=== PATIENT | male | born 1960 | race Caucasian/White ===

== ENCOUNTER 2016-12-12 02:25 | Emergency (ER) | payer MEDICARE ==
[2016-12-12 02:40] VITALS: TEMP 96.5
--- NOTE | 2016-12-12 03:05 | ED.PDOC ---
History of Present Illness - General Chief Complaint: Blood Pressure Problem Stated Complaint: low blood pressure Time Seen by Provider: 12/12/16 03:04 Source: patient, family Exam Limitations: no limitations - History of Present Illness Initial Comments: Mr. Tank Espitia 56 y/o male with history of seizure dyslipedemia and chronic disc disease stated his symptoms started at about 8 pm tonight after coming out of his garage felt dizzy for few minutes then went away ate supper and he and his watched tv and admitted drinking a glass of wine and 1 bottle of beer. After watching tv got up from his sofa and almost passed out took his blood pressure and bp-70/50 so called up em[facility] and took his bp-65/40.He was then brought here to er. Timing/Duration: 1-3 hours Improving Factors: nothing Worsening Factors: other - standing Associated Symptoms: other - dizziness Allergies/Adverse Reactions: Allergies Tramadol Allergy (Verified 12/12/16 02:41) Zolpidem [From Ambien] Allergy (Verified 12/12/16 02:41) Acetaminophen [From Fioricet] Adverse Reaction (Verified 02/18/16 17:58) Other Butalbital [From Fioricet] Adverse Reaction (Verified 02/18/16 17:58) Other Caffeine [From Fioricet] Adverse Reaction (Verified 02/18/16 17:58) Other Home Medications: Ambulatory Orders Alprazolam [Xanax] 1 mg PO TID 08/23/14 Esomeprazole Magnesium [Nexium] 40 mg PO DAILY 08/23/14 Gemfibrozil 600 mg PO BID 08/23/14 Lovastatin 20 mg PO DAILY 08/23/14 Trazodone HCl 150 mg PO BEDTIME 08/23/14 Levetiracetam [Keppra] 500 mg PO BID 08/30/15 Lisinopril & Hydrochlorothiazi [Lisinopril/Hctz 20-25 mg] 1 tab PO DAILY HYDROcodone 5MG/APAP 325MG [[facility] 5/325] 7.5 mg PO Q6HR PRN 02/18/16 fentaNYL PATCH 25 MCG/HR [Duragesic Patch 25 MCG/HR] 25 mcg TOP 12/12/16 tiZANidine [Zanaflex] 4 mg PO 12/12/16 Review of Systems - Review of Systems Constitutional: States: no symptoms reported EENTM: States: no symptoms reported Respiratory: States: no symptoms reported Cardiology: States: see HPI Gastrointestinal/Abdominal: States: no symptoms reported Genitourinary: States: no symptoms reported Musculoskeletal: States: back pain, neck pain Skin: States: no symptoms reported Neurological: States: no symptoms reported, paresthesia - fingers-residual post neck surgery Past Medical History (General) - Patient Medical History Hx Seizures: Yes Hx Stroke: No Hx Dementia: No Hx Asthma: No Hx of COPD: No Hx Cardiac Disorders: No Hx Congestive Heart Failure: No Hx Pacemaker: No Hx Hypertension: Yes Hx Thyroid Disease: No Hx Diabetes: No Hx Gastroesophageal Reflux: Yes Hx Renal Disease: No Hx Cancer: No Hx of HIV: No Hx Hepatitis C: No Hx MRSA: No Hx Other PMH: Yes - Heat stroke Surgical History: tonsillectomy Other Surgeries:: discectomy,c-spine x 2- 03/27,06/27 - Vaccination History Hx Tetanus, Diphtheria Vaccination: Yes Hx Influenza Vaccination: Yes Hx Pneumococcal Vaccination: No - Social History Hx Tobacco Use: No Hx Chewing Tobacco Use: No Hx Alcohol Use: Yes Hx Substance Use: No Hx Substance Use Treatment: No Hx Depression: No Hx Physical Abuse: No Hx Emotional Abuse: No Hx Suspected Abuse: No - Activities of Daily Living Patient Lives Alone: No - lives with family Grooming Ability: Independent Eating (Feeding) Ability: Independent Toileting Ability: Independent - Female History Patient : No Family Medical History - Family History Father Living Status: Hx Family Stroke: Yes Hx Family Cancer: Yes - pancreas-dad Hx Family;Other: Down syndrome Physical Exam - Physical Exam General Appearance: Alert, No apparent distress Eye Exam: bilateral normal Ears, Nose, Throat: hearing grossly normal, normal ENT inspection, normal pharynx Neck: non-tender, full range of motion, supple, other - surgical site clear intact Respiratory: chest non-tender, lungs clear, normal breath sounds, no respiratory distress Cardiovascular/Chest: normal peripheral pulses, regular rate, rhythm, no edema, no gallop, no JVD, no murmur Gastrointestinal/Abdominal: normal bowel sounds, non tender, soft, no organomegaly, no pulsatile mass Back Exam: normal inspection, no CVA tenderness, no vertebral tenderness Extremity: normal range of motion, non-tender, normal inspection Neurologic: no motor/sensory deficits, alert, oriented x 3 Skin Exam: normal color, warm/dry, cyanosis Lymphatic: no adenopathy Progress - Progress Progress: 12/12/16 06:23 12/12/16 04:30 EKG STAT 12/12/16 05:00 BLOOD CULTURE Stat 12/12/16 05:59 Cervical Spine [CT] Stat 12/12/16 06:13 Sodium Chloride 0.9% 1000ML [Ns 1000 ml] 1,000 ml IVS ONCE levoFLOXacin 500MG IV [Levaquin 500MG IV] 500 mg Premix Bag 1 bag IVPB ONCE Laboratory Results WBC 7.0 K/mm3 (4.8-10.8) 12/12/16 03:05 RBC 3.54 M/mm3 (4.70-6.10) L 12/12/16 03:05 Hgb 11.4 gm/dL (14.0-18.0) L 12/12/16 03:05 Hct 33.6 % (42.0-52.0) L 12/12/16 03:05 MCV 95.2 fl (80.0-94.0) H 12/12/16 03:05 MCH 32.2 pg (27.0-31.0) H 12/12/16 03:05 MCHC 33.8 g/dL (33.0-37.0) 12/12/16 03:05 RDW 13.4 % (11.5-14.5) 12/12/16 03:05 Plt Count 255 K/mm3 (130-400) 12/12/16 03:05 MPV 7.8 fl (7.40-10.4) 12/12/16 03:05 Absolute Neuts (auto) 3.60 K/uL (1.8-6.8) 12/12/16 03:05 Absolute Lymphs (auto) 2.50 K/uL (1.0-3.4) 12/12/16 03:05 Absolute Monos (auto) 0.70 K/uL (0.2-0.8) 12/12/16 03:05 Absolute Eos (auto) 0.20 K/uL (0.0-0.4) 12/12/16 03:05 Absolute Basos (auto) 0.00 K/uL (0.0-0.1) 12/12/16 03:05 Neutrophils % 51.2 % (42.0-78.0) 12/12/16 03:05 Lymphocytes % 35.9 % (20.0-50.0) 12/12/16 03:05 Monocytes % 9.7 % (2.0-9.0) H 12/12/16 03:05 Eosinophils % 2.6 % (1.0-5.0) 12/12/16 03:05 Basophils % 0.6 % (0.0-2.0) 12/12/16 03:05 ESR 13 mm/hr (0-20) 12/12/16 04:46 PT 11.7 SECONDS (9.4-12.5) 12/12/16 03:05 INR 1.040 12/12/16 03:05 PTT (SP) 31.1 SECONDS (25.1-36.5) 12/12/16 03:05 D-Dimer, Quantitative < 200 ng/mL (0-230) 12/12/16 03:05 Sodium 138 mmol/L (135-145) 12/12/16 03:05 Potassium 3.2 mmol/L (3.6-5.0) L 12/12/16 03:05 Chloride 105 mmol/L (101-111) 12/12/16 03:05 Carbon Dioxide 22 mmol/L (21-31) 12/12/16 03:05 Anion Gap 14.2 (12-18) 12/12/16 03:05 BUN 22 mg/dL (7-18) H 12/12/16 03:05 Creatinine 1.52 mg/dL (0.6-1.3) H 12/12/16 03:05 BUN/Creatinine Ratio 14.5 (10-20) 12/12/16 03:05 Random Glucose 152 mg/dL (70-105) H 12/12/16 03:05 Serum Osmolality 282.0 mOsm/L (275-295) 12/12/16 03:05 Lactic Acid 2.9 mmol/L (0.5-2.2) H* 12/12/16 04:14 Calcium 8.9 mg/dL (8.4-10.2) 12/12/16 03:05 Magnesium 2.1 mg/dL (1.8-2.5) 12/12/16 03:05 Total Bilirubin 0.5 mg/dL (0.2-1.0) 12/12/16 03:05 AST 34 IU/L (10-42) 12/12/16 03:05 ALT 34 IU/L (10-60) 12/12/16 03:05 Alkaline Phosphatase 35 IU/L (42-121) L 12/12/16 03:05 Creatine Kinase 217 IU/L (38-174) H* 12/12/16 03:05 CK-MB (CK-2) 6.3 ng/mL (0.0-4.4) H* 12/12/16 03:05 CK-MB (CK-2) % 2.90 % (0.0-3.5) 12/12/16 03:05 Troponin I < 0.02 ng/mL (0.01-0.05) 12/12/16 03:05 B-Natriuretic Peptide 25.5 pg/ml (0-100) 12/12/16 03:05 Serum Total Protein 6.8 gm/dL (6.4-8.2) 12/12/16 03:05 Albumin 4.1 g/dl (3.2-5.5) 12/12/16 03:05 Globulin 2.7 gm/dL (2.3-3.5) 12/12/16 03:05 Albumin/Globulin Ratio 1.5 (1.1-1.9) 12/12/16 03:05 TSH 5.40 uIU/mL (0.34-5.60) 12/12/16 03:41 Urine Color Yellow (Yellow) 12/12/16 03:25 Urine Appearance Clear (Clear) 12/12/16 03:25 Urine pH 6.5 (4.5-7.8) 12/12/16 03:25 Ur Specific [place] 1.010 (1.005-1.030) 12/12/16 03:25 Urine Protein Negative mg/dL 12/12/16 03:25 Urine Glucose (UA) Negative mg/dL (Negative) 12/12/16 03:25 Urine Ketones Negative mg/dL (NEGATIVE) 12/12/16 03:25 Urine Blood Small (Negative) H 12/12/16 03:25 Urine Nitrite Negative 12/12/16 03:25 Urine Bilirubin Negative (NEGATIVE) 12/12/16 03:25 Urine Urobilinogen 0.2 mg/dL (0.2-1.0) 12/12/16 03:25 Ur Leukocyte Esterase Negative (Negative) 12/12/16 03:25 Urine RBC 1-3 /hpf 12/12/16 03:25 Urine WBC 0 /hpf 12/12/16 03:25 Ur Epithelial Cells 0 /hpf 12/12/16 03:25 Urine Bacteria 0 12/12/16 03:25 Urine Opiates Screen Negative ng/mL (2000) 12/12/16 03:07 Urine Barbiturates Negative ng/mL (200) 12/12/16 03:07 Ur Phencyclidine Scrn Negative ng/mL (25) 12/12/16 03:07 U Amphetamin/Meth Scrn Negative ng/mL (1000) 12/12/16 03:07 U Benzodiazepines Scrn Positive ng/mL (200) H 12/12/16 03:07 U Cocaine Metab Screen Negative ng/mL (300) 12/12/16 03:07 U Cannabinoids Screen Negative ng/mL (50) 12/12/16 03:07 Ethyl Alcohol 143.50 mg/dL (0-79) H* 12/12/16 03:07 12/12/16 06:23 - EKG/XRAY/CT Comments: NSR-no acute changes XRAY: chest - no acute abnormalities noted CT: C-Spine :degenerative and post op changes - Additional EKG/XRAY/Consults Comments: D/W Dr. Abrams-spine surgeon transfer to [facility] Departure - Departure Clinical Impression: Lactic acid blood increased, Renal insufficiency, H/O cervical spine surgery Hypotension Qualifiers: Hypotension type: unspecified hypotension type Qualifier Code: (I95.9) Hypotension, unspecified Time of Disposition: 06:33 - D/W Dr. Abrams-spine surgeon for transfer to [facility] Disposition: Transfer to Hospital Condition: Fair Departure Forms: ED Discharge - Pt. Copy, Patient Portal Self Enrollment Referrals: Riley Ramirez MD [Primary Care Provider] - 1-2 Weeks Home Medications: Ambulatory Orders Alprazolam [Xanax] 1 mg PO TID 08/23/14 Esomeprazole Magnesium [Nexium] 40 mg PO DAILY 08/23/14 Gemfibrozil 600 mg PO BID 08/23/14 Lovastatin 20 mg PO DAILY 08/23/14 Trazodone HCl 150 mg PO BEDTIME 08/23/14 Levetiracetam [Keppra] 500 mg PO BID 08/30/15 Lisinopril & Hydrochlorothiazi [Lisinopril/Hctz 20-25 mg] 1 tab PO DAILY HYDROcodone 5MG/APAP 325MG [[facility] 5/325] 7.5 mg PO Q6HR PRN 02/18/16 fentaNYL PATCH 25 MCG/HR [Duragesic Patch 25 MCG/HR] 25 mcg TOP 12/12/16 tiZANidine [Zanaflex] 4 mg PO 12/12/16 Addendum entered and electronically signed by Dangelo Calero MD 12/12/16 09:03 : Departure - Departure Clinical Impression: Lactic acid blood increased, Renal insufficiency, H/O cervical spine surgery Hypotension Qualifiers: Hypotension type: unspecified hypotension type Qualifier Code: (I95.9) Hypotension, unspecified Disposition: Transfer to Hospital Condition: Fair Departure Forms: ED Discharge - Pt. Copy, Patient Portal Self Enrollment Referrals: Riley Ramirez MD [Primary Care Provider] - 1-2 Weeks Home Medications: Ambulatory Orders Alprazolam [Xanax] 1 mg PO TID 08/23/14 Esomeprazole Magnesium [Nexium] 40 mg PO DAILY 08/23/14 Gemfibrozil 600 mg PO BID 08/23/14 Lovastatin 20 mg PO DAILY 08/23/14 Trazodone HCl 150 mg PO BEDTIME 08/23/14 Levetiracetam [Keppra] 500 mg PO BID 08/30/15 Lisinopril & Hydrochlorothiazi [Lisinopril/Hctz 20-25 mg] 1 tab PO DAILY HYDROcodone 5MG/APAP 325MG [[facility] 5/325] 7.5 mg PO Q6HR PRN 02/18/16 fentaNYL PATCH 25 MCG/HR [Duragesic Patch 25 MCG/HR] 25 mcg TOP 12/12/16 tiZANidine [Zanaflex] 4 mg PO 12/12/16 ED Addendum - ED Addendum Addendum: the patient is being transferred to the emergency room due to lack of inpatient beds. Dr. Brunosn is the accepting physician. Blood pressures have been stable at 2 L of IV fluids. The patient has received a dose of Levaquin.
[2016-12-12] MEDS: SODIUM CHLORIDE 0.9% 1000ML 1,000 ML IVS ONE ×3 (03:12→06:25)
--- NOTE | 2016-12-12 03:51 | RAD ---
EXAM DESCRIPTION: XR CHEST 1 VIEW 12/12/2016 3:36 AM CLINICAL HISTORY: 56 y/o , M, cough COMPARISON: Portable AP view of the chest August 30, 2015 FINDINGS: The lungs are clear without focal consolidation or pleural effusion. The heart is normal in size. The mediastinal contours are normal in appearance. The osseous structures are age appropriate. There is surgical hardware in the lower cervical spine. The upper abdomen is grossly normal. IMPRESSION: No acute cardiopulmonary disease (stable appearing chest). Electronically signed by: Carmen Torres MD 12/12/2016 03:48
[2016-12-12] MEDS ORDERED: levoFLOXacin 500MG IV 100 ML IVPB ONE (06:23)
[2016-12-12] MEDS: levoFLOXacin 500MG IV 500 MG in PREMIX BAG 1 BAG IVPB ONE (06:24)
[2016-12-12] MEDS: fentaNYL CITRATE INJ 50 MCG/ML AMP IV ONE (06:37)
--- NOTE | 2016-12-12 06:42 | CT ---
EXAM DESCRIPTION: CT CERVICAL SPINE WITHOUT IV CONTRAST 12/12/2016 6:27 AM CLINICAL HISTORY: 56 y/o , M, neck pain COMPARISON: MRI of the cervical spine without contrast February 10, 2015 TECHNIQUE: Volumetric CT acquisition was performed through the cervical spine. Images in the axial, coronal, and sagittal planes were presented for interpretation. FINDINGS: There are 7 cervical type vertebral bodies in normal anatomic alignment. There is no evidence of acute fracture or dislocation. There is surgical hardware at the C3 through C6 5 levels with anterior fixation plate and disc spacers in place. There is pedicle and fixation hardware at the C2 through T1 levels. There is a chronic compression deformity at the C6 level. At the C2/C3 level, there is mild loss of disc space height with a small left paracentral disc osteophyte complex. There is mild neural foraminal narrowing on the left and no significant narrowing on the right. At the C3/C4 level, there is loss of disc space height with a disc spacer in place. There is a moderate osteophyte complex with uncovertebral hypertrophy bilaterally. There is moderate neural foraminal narrowing bilaterally. At the C4/C5 level, there is a disc spacer in place with a moderate osteophyte complex and uncovertebral hypertrophy on the left. There is moderate neural foraminal narrowing on the left and mild neural foraminal narrowing on the right. At the C5/C6 level, there is loss of disc space height with a moderate broad-based right paracentral disc osteophyte complex. There is mild to moderate neural foraminal narrowing bilaterally. At the C6/C7 level, there is loss of disc space height with a moderate broad-based disc osteophyte complex. There is moderate to severe neural foraminal narrowing bilaterally. The paravertebral and prevertebral soft tissues are normal. There are no fluid collections or evidence of soft tissue thickening. The musculature and soft tissue structures of the neck are within normal limits. There are no pathologically enlarged lymph nodes. The visualized vasculature is normal. The visualized portions of the brain and skull base are grossly unremarkable. Limited evaluation of the lung apices demonstrate no gross abnormalities. IMPRESSION: 1. No acute fracture or dislocation of the cervical spine. 2. Stable multilevel degenerative changes as described above. 3. Surgical fixation hardware throughout the cervical spine. Electronically signed by: Carmen Torres MD 12/12/2016 06:40
[2016-12-12 09:47] VITALS: BP 160/87; O2SAT 100
== END 2016-12-12 09:45 | disposition short-term general hospital (02) ==
LOC: ER 02:25
DX: I95.9 Hypotension, unspecified (principal); N28.9 Disorder of kidney and ureter, unspecified; I10 Essential (primary) hypertension; K21.9 Gastro-esophageal reflux disease without esophagitis; Z88.6 Allergy status to analgesic agent; Z88.8 Allergy status to other drugs, medicaments and biological substances; Z79.899 Other long term (current) drug therapy; Z98.1 Arthrodesis status
CPT/HCPCS: 71010; 72125; 80048; 80053; 80320; 81001; 82550; 82553; 83605; 83880; 84443; 84484; 85025; 85379; 85610; 85651; 85730; 87040; 93005; G0479; J1956; J3010; J7030

== ENCOUNTER 2017-05-09 21:13 | Inpatient (IN) | payer MEDICARE ==
[2017-05-09] MEDS ORDERED: SODIUM CHLORIDE 0.9% 1000ML 1,000 ML IVS ONE (21:42)
[2017-05-09] MEDS ORDERED: DEX 5% IV ONE (23:34)
[2017-05-09] MEDS ORDERED: SODIUM BICARBONATE IV ONE (23:34)
[2017-05-09] MEDS ORDERED: NACL 0.45% IV ONE (23:34)
[2017-05-09] MEDS ORDERED: PHENYTOIN SODIUM INJ 100 MG/2 ML VIAL IV ONE (23:48)
[2017-05-10] MEDS ORDERED: SODIUM CHLORIDE 0.9% 250ML 250 ML ONE (00:02)
--- NOTE | 2017-05-10 00:05 | ED.PDOC ---
History of Present Illness - General Chief Complaint: Neuro Symptoms/Deficits Stated Complaint: Altered Level of Consciousness Time Seen by Provider: 05/09/17 21:14 Source: patient Exam Limitations: no limitations - History of Present Illness Initial Comments: the patient is a 56-year-old male presenting to the emergency room secondary to increased frequency of seizures. The patient does have a known seizure disorder since having had a heat stroke about 4 years ago. He takes Keppra on a daily basis. Today he has had 3 or 4 witnessed seizure type episodes. He has not fallen or hurt himself. he has not had any definite medication changes within the last week or 2 with the exception of using Zanaflex intermittently with his Flexeril. the patient has had some significant heat exposure. the 2 seizures witnessed here by me start off with the patient in conversation when his lower lip starts quivering and then his upper right eyebrow starts quivering. He does not realize is happening. He subsequently stopped speaking midsentence. He is unable to voluntarily move his upper or lower extremities. There is significant cogwheel rigidity. There is stiffness in his neck. He does not stop breathing. He does swallow several times. He can look around with his eyes. There are no tremors at that point. During one episode he did have urinary incontinence. No biting of the tongue. No foaming at the mouth. No rolling of the eyes. He does look around with his eyes only during the event. you cannot however instruct him to look one way or another. oxygen saturations remained at 100%. Heart rate does not vary from normal. the patient does however become diaphoretic. The first episode i witnessed lasted approximately 5 minutes. The second was approximately 2 minutes. when the episode breaks the patient picks up midsentence where he left off before. for 2 or 3 minutes his thoughts are very scattered in his words are sometimes inappropriate for the topic that he is discussing. After that, here is really little evidence of any postictal changes. He does not have a headache. No unusual smell or taste. please note that the patient does list an acetaminophen allergy but takes regular hydrocodone with acetaminophen in them without any problem. Timing/Duration: 4-6 hours Severity: moderate Improving Factors: medication Worsening Factors: nothing Associated Symptoms: malaise, seizure Allergies/Adverse Reactions: Allergies Tramadol Allergy (Verified 12/12/16 02:41) Zolpidem [From Ambien] Allergy (Verified 12/12/16 02:41) Acetaminophen [From Fioricet] Adverse Reaction (Verified 02/18/16 17:58) Other Butalbital [From Fioricet] Adverse Reaction (Verified 02/18/16 17:58) Other Caffeine [From Fioricet] Adverse Reaction (Verified 02/18/16 17:58) Other Home Medications: Ambulatory Orders Alprazolam [Xanax] 1 mg PO TID 08/23/14 Esomeprazole Magnesium [Nexium] 40 mg PO DAILY 08/23/14 Gemfibrozil 600 mg PO BID 08/23/14 Lovastatin 20 mg PO DAILY 08/23/14 Trazodone HCl 150 mg PO BEDTIME 08/23/14 Levetiracetam [Keppra] 500 mg PO BID 08/30/15 Lisinopril & Hydrochlorothiazi [Lisinopril/Hctz 20-25 mg] 1 tab PO DAILY HYDROcodone 5MG/APAP 325MG [[place] 5/325] 7.5 mg PO Q6HR PRN 02/18/16 fentaNYL PATCH 25 MCG/HR [Duragesic Patch 25 MCG/HR] 25 mcg TOP 12/12/16 tiZANidine [Zanaflex] 4 mg PO 12/12/16 Review of Systems - Review of Systems Constitutional: States: malaise EENTM: States: no symptoms reported Respiratory: States: no symptoms reported Cardiology: States: no symptoms reported Gastrointestinal/Abdominal: States: no symptoms reported Genitourinary: States: no symptoms reported Musculoskeletal: States: no symptoms reported - chronic changes only Skin: States: no symptoms reported Neurological: States: tremors Endocrine: States: excessive sweating All other Systems: No Change from Baseline Past Medical History (General) - Patient Medical History Hx Seizures: Yes - Petit Mal Seizures Hx Stroke: No Hx Dementia: No Hx Asthma: No Hx of COPD: No Hx Cardiac Disorders: No Hx Congestive Heart Failure: No Hx Pacemaker: No Hx Hypertension: Yes Hx Thyroid Disease: No Hx Diabetes: No Hx Gastroesophageal Reflux: Yes Hx Renal Disease: No Hx Cancer: No Hx of HIV: No Hx Hepatitis C: No Hx MRSA: No - Vaccination History Hx Tetanus, Diphtheria Vaccination: Yes Hx Influenza Vaccination: Yes Hx Pneumococcal Vaccination: No - Social History Hx Tobacco Use: No Hx Chewing Tobacco Use: No Hx Alcohol Use: Yes Hx Substance Use: No Hx Substance Use Treatment: No Hx Depression: Yes Feels Threatened In Home Enviroment: No Feels Threatened In a Relationship: No Hx Physical Abuse: No Hx Emotional Abuse: No Hx Suspected Abuse: No - Female History Patient : No Family Medical History - Family History Father Living Status: Hx Family Stroke: Yes Hx Family Cancer: Yes - pancreas-dad Hx Family;Other: Down syndrome Physical Exam - Physical Exam General Appearance: Alert, Comfortable, No apparent distress Eye Exam: bilateral normal Ears, Nose, Throat: hearing grossly normal, normal ENT inspection, normal pharynx Neck: non-tender, full range of motion, supple Respiratory: chest non-tender, lungs clear, normal breath sounds, no respiratory distress, no accessory muscle use Cardiovascular/Chest: normal peripheral pulses, regular rate, rhythm, no edema Peripheral Pulses: radial,right: 2+, radial,left: 2+, dorsalis pedis,right: 2+, dorsalis pedis,left: 2+, posterior tibialis,right: 2+, posterior tibialis,left: 2+ Gastrointestinal/Abdominal: non tender, soft Rectal Exam: deferred Back Exam: normal inspection, no vertebral tenderness Extremity: normal range of motion, non-tender, normal inspection, no pedal edema , normal capillary refill 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 See history of present illness for changes during the seizure. The patient does have aphasia during the seizure. Skin Exam: normal color - he does have a mild sunburn. , diaphoresis - during the seizure Comments: Vital Signs - 24 hr 05/09/17 05/09/17 23:00 23:28 Temperature 97.6 F Pulse Rate [L 91 H Arm] Respiratory 20 18 Rate Blood Pressure 153/81 103/71 [L Arm] O2 Sat by Pulse 99 99 Oximetry Progress - Progress Progress: 05/10/17 00:09 the patient is a 56-year-old male presenting to the emergency room with an increased frequency in his seizures. Seizures appear to be partial seizures with generalization leading to increased tonicity of his trunk and extremities. There does not appear to be any interruption of respiration. the postictal period is brief. the patient appears to have acute renal failure that has likely triggered this worsening. This may be due to his blood pressure medication containing a diuretic as well as recent heat exposure. the patient may have mild rhabdomyolysis however the elevation and muscle enzymes may primarily simply be due to decreasing renal function. the patient has had no chest pain. The patient is receiving IV fluids. The patient is receiving a dose of Dilantin IV for now. He has also received an IM injection of Ativan and an oral dose of clonazepam. admit for further monitoring and care. head CT not done today due to one being done about a year and a half ago. - Results/Orders Results/Orders: 05/09/17 21:43 Telemetry .CONTINUOUS 05/09/17 23:34 Sodium Bicarbonate 10Meq/10Ml 50 meq Dex 5% W/NaCl 0.45% 1000ML [D5 1/2NS 1000ml] 1,000 ml IV ONCE Laboratory Results - last 24 hr 05/09/17 05/09/17 05/09/17 21:43 22:22 22:22 WBC 13.2 H RBC 3.65 L Hgb 11.7 L Hct 34.9 L MCV 95.7 H MCH 32.0 H MCHC 33.7 RDW 12.7 Plt Count 320 MPV 8.0 Absolute Neuts (auto) 10.90 H Absolute Lymphs (auto) 1.30 Absolute Monos (auto) 0.90 H Absolute Eos (auto) 0.00 Absolute Basos (auto) 0.10 Neutrophils % 83.1 H Lymphocytes % 9.7 L Monocytes % 6.6 Eosinophils % 0.1 L Basophils % 0.5 Sodium 134 L Potassium 5.8 H Chloride 105 Carbon Dioxide 18 L Anion Gap 16.8 BUN 44 H Creatinine 3.34 H BUN/Creatinine Ratio 13.2 Random Glucose 110 H Serum Osmolality 280.1 Calcium 9.4 Magnesium 2.4 Total Bilirubin 0.7 AST 43 H ALT 57 Alkaline Phosphatase 37 L Creatine Kinase 606 H* CK-MB (CK-2) 13.9 H* CK-MB (CK-2) % 2.29 Troponin I < 0.02 Serum Total Protein 8.3 H Albumin 5.2 Globulin 3.1 Albumin/Globulin Ratio 1.7 TSH 0.49 Urine Color Urine Appearance Urine pH Ur Specific [place] Urine Protein Urine Glucose (UA) Urine Ketones Urine Blood Urine Nitrite Urine Bilirubin Urine Urobilinogen Ur Leukocyte Esterase Urine RBC Urine WBC Ur Epithelial Cells Urine Bacteria Urine Opiates Screen Negative Urine Barbiturates Negative Ur Phencyclidine Scrn Negative U Amphetamin/Meth Scrn Negative U Benzodiazepines Scrn Positive H U Cocaine Metab Screen Negative U Cannabinoids Screen Negative 05/09/17 23:30 WBC RBC Hgb Hct MCV MCH MCHC RDW Plt Count MPV Absolute Neuts (auto) Absolute Lymphs (auto) Absolute Monos (auto) Absolute Eos (auto) Absolute Basos (auto) Neutrophils % Lymphocytes % Monocytes % Eosinophils % Basophils % Sodium Potassium Chloride Carbon Dioxide Anion Gap BUN Creatinine BUN/Creatinine Ratio Random Glucose Serum Osmolality Calcium Magnesium Total Bilirubin AST ALT Alkaline Phosphatase Creatine Kinase CK-MB (CK-2) CK-MB (CK-2) % Troponin I Serum Total Protein Albumin Globulin Albumin/Globulin Ratio TSH Urine Color Yellow Urine Appearance Clear Urine pH 5.5 Ur Specific [place] 1.015 Urine Protein Trace Urine Glucose (UA) 250 H Urine Ketones Trace Urine Blood Moderate H Urine Nitrite Negative Urine Bilirubin Negative Urine Urobilinogen 0.2 Ur Leukocyte Esterase Negative Urine RBC 0-1 Urine WBC 0 Ur Epithelial Cells 0 Urine Bacteria Rare Urine Opiates Screen Urine Barbiturates Ur Phencyclidine Scrn U Amphetamin/Meth Scrn U Benzodiazepines Scrn U Cocaine Metab Screen U Cannabinoids Screen - EKG/XRAY/CT CT Ordered: No CT Interpretation Call Back: No Departure - Departure Clinical Impression: Acute renal failure Qualifiers: Acute renal failure type: unspecified Qualified Code(s): N17.9 - Acute kidney failure, unspecified Epilepsy and recurrent seizures Qualifiers: Epilepsy type: other generalized Intractability: not intractable Status epilepticus: without status epilepticus Qualified Code(s): G40.409 - Other generalized epilepsy and epileptic syndromes, not intractable, without status epilepticus Disposition: Admit Patient Home Medications: Ambulatory Orders Alprazolam [Xanax] 1 mg PO TID 08/23/14 Esomeprazole Magnesium [Nexium] 40 mg PO DAILY 08/23/14 Gemfibrozil 600 mg PO BID 08/23/14 Lovastatin 20 mg PO DAILY 08/23/14 Trazodone HCl 150 mg PO BEDTIME 08/23/14 Levetiracetam [Keppra] 500 mg PO BID 08/30/15 Lisinopril & Hydrochlorothiazi [Lisinopril/Hctz 20-25 mg] 1 tab PO DAILY HYDROcodone 5MG/APAP 325MG [[place] 5/325] 7.5 mg PO Q6HR PRN 02/18/16 fentaNYL PATCH 25 MCG/HR [Duragesic Patch 25 MCG/HR] 25 mcg TOP 12/12/16 tiZANidine [Zanaflex] 4 mg PO 12/12/16 Decision To Admit - Decistion To Admit Decision to Admit Reason: Medical Nature Decision to Admit Date: 05/10/17 Decision to Admit Time: 00:28
[2017-05-10] MEDS ORDERED: HYDROcodone 7.5MG/APAP 325MG 1 EA TAB PO ONE (00:10)
[2017-05-10] MEDS ORDERED: SODIUM CHLORIDE 0.9% 250ML 250 ML IVS ONE (00:31)
--- NOTE | 2017-05-10 01:23 | HP ---
HISTORY OF PRESENT ILLNESS: This 56-year-old, white male is admitted to the hospital from the Emergency Room because of worsening symptoms of seizure activity with chronic pain. He has not been eating and drinking well. There is a possibility that he has actually missed some of his medication dosings. He tends to talk real fast and then goes into episodes of staring, being unresponsive, not talking, yet at the same being able to follow with his eyes the person that he is talking with. He apparently has been having these episodes off and on for the last four years noted after a significant heat stroke noted in 2010. The feels that being sleep deprived tends to augment and make these episodes worse. He has seen Dr. Owens, neurologist, in the past. He is also having significant chronic pain issues having had significant fusion of his cervical spine with resultant disability. Since then , he has been on some fentanyl patches as well as [place] for pain relief and may eventually require surgery on his lumbar spine as well with that evaluation currently in progress in [place]. He had an MR of the spine about two years ago, but has not had an MR of the brain yet. In the Emergency Room, he was noted to be in early renal failure with markedly elevated BUN and creatinine requiring specific IV hydration to continue as well as an elevated potassium level. The patient is admitted to the hospital for ongoing pulse oximetry monitoring, telemetry monitoring and neuro vitals as well as close management to make sure he does not fall and injure himself. A course of rest will be observed and then further evaluation with studies to continue. PAST MEDICAL HISTORY: 1. Chronic pain state. 2. Neck and now low back pain. 3. History of absence seizure or petit mal, yet with a negative EEG, followed by Dr. Owens. 4. Question of bipolar. 5. Chronic insomnia. 6. History of hypertension. PAST SURGICAL HISTORY: 1. Cervical fusion with anterior and posterior approach in June of 2016. 2. Tonsillectomy and adenoidectomy as a teenager. CURRENT MEDICATIONS: Please refer to nursing notes for a list of home medications taken by the patient. ALLERGIES: TRAMADOL, ZOLPIDEM, TYLENOL, BUTALBITAL, CAFFEINE. FAMILY HISTORY: Positive for coronary artery disease, diabetes mellitus, cancer , and cerebrovascular accident. 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 He stopped smoking about five years ago. REVIEW OF SYSTEMS: GENERAL: He has lost weight from about 237 down to 209 fairly recently in his efforts to try to lose weight. No fever or chills. HEENT: Unremarkable. LUNGS: No significant shortness of breath or cough. CARDIOVASCULAR: No significant rhythm disturbances, palpitations or chest pains. GASTROINTESTINAL: No nausea or vomiting. No diarrhea or blood in the stools. GENITOURINARY: No dysuria. NEUROLOGIC: Having trouble sleeping and having spells of "absence seizures" where he would stare and not respond, usually lasting for about a minute. PHYSICAL EXAMINATION: VITAL SIGNS: Pulse 77. Afebrile. Blood pressure 120/64. Pulse oximetry 99% on room air. Weight 95.1 kg. GENERAL: The patient is able to communicate quite well, but he is quite anxious , speaking quite fast. He has spells where he slurs, mumbles and misses some of his words, then he would tend to go into what appears to be an episode of inattention with no talking or responding even though at times during these episodes which last a minute or two, he is able to shake his head in response to a question. He is able to follow the speaker and the questioner around the room with his eyes. No other focal neurological findings are evident. The symptoms tend to jack after a minute or two and then he is back to normal. The says he is speaking a little faster than usual, that leads into these spells and if he was just able to get some sleep, he would probably get away from these spells. He has been on seizure medicines. He has not seen the neurologist for a couple of years. He has recently had significant neck surgery , which is being followed in the clinic with Dr. Ramirez with fentanyl as well as [place] pain relief medications as needed. HEENT: Within normal limits. Buccal mucosa is somewhat dry, requiring some hydration. NECK: Supple. LUNGS: Generally clear. CARDIOVASCULAR: Heart tones are regular without any significant gallops. ABDOMEN: Soft, slightly distended, yet no organomegaly, masses or tenderness. No complaints of constipation. EXTREMITIES: Fairly well-formed. No tonic-clonic movements. NEUROLOGIC: The patient does have spells usually lasting a minute or two approximately every 10 to 15 minutes during the interview where he stares and does not respond to questions. At times when the questions are specifically addressed to him, he will shake or nod his head in answer to questions. After a minute, he will become more alert and rapidly answer even having some recollection of the conversation that was going on while he was appearing to be unresponsive in his chair or in the bed. No tonic-clonic movements are observed. No evidence of hallucinations at this time. LABORATORY: White count 13,200, hemoglobin 11.7. Chemistries show potassium 5.8 down to 4.3. Sodium from 134 to 136. BUN 44, down to 38 with fluids. Creatinine markedly elevated at 3.34, down to 2.7 with overnight hydration. CK elevated at 606, up to 637. The patient is on statins. Troponin 0. TSH normal. AST elevated at 43. Urine shows some hematuria and glycosuria and urine drug screen is positive for benzodiazepines. No culture obtained. Awaiting MRI of the head to be scheduled as possible since one has not been done in the past with the last CT of the head being over two years ago. ASSESSMENT: 1. Acute renal injury with renal insufficiency, possibly aggravated by prerenal azotemia. 2. Moderate dehydration state. 3. Hyperkalemia. 4. Chronic absence seizures or petit mal type of seizure episodes, possibly with underlying mental health issues, as well. 5. Chronic pain state on fentanyl and hydrocodone. 6. Chronic low back pain with degenerative changes. 7. History of recent cervical fusion because of advance degenerative changes. 8. Possibility of bipolar disorder, requiring psychiatric evaluation to assist with ongoing care. 9. Chronic insomnia, possibly contributing to some of his "absence" episodes. 10. History of hypertension. 11. Elevated CPK, continue to observe as to whether related to chronic statin use versus possible seizure disorder. PLAN: The patient is admitted to the hospital for specific close observation, observing for any degree of pulse oximetry desaturation. We will schedule a sleep study as an outpatient. Continue with benzodiazepine and his analgesic medication program as needed. Try to give an adequate degree of rest today to see if it will significantly help some of the absence episodes. Try to decrease his trazodone from 150 go 100 mg at bedtime. Try to get a psychiatrist evaluation appointment through [facility]. We will contact Dr. Owesn, who has seen the patient in the past, awaiting his call back. Schedule an MRI of the head looking for any type of structural lesions, but if possible to await improvement of his renal function, then can use contrast media. Continue with Keppra for possible underlying seizure disorder, started apparently by Dr. Owens. Close observation. #[id number] [facility]
[2017-05-10] MEDS ORDERED: MORPHINE SULFATE INJ 10 MG/ML VIAL IV ONE (01:25)
[2017-05-10] MEDS ORDERED: fentaNYL PATCH 25 MCG/HR 1 EA PATCH TD SCH (01:30)
[2017-05-10] MEDS ORDERED: SODIUM CHLORIDE 0.9% (FLUSH) 10 ML SYG IV PRN (06:29)
[2017-05-10] MEDS ORDERED: IV SET AND CAP CHANGE INJ INJ SCH (06:30)
[2017-05-10] MEDS: SODIUM CHLORIDE 0.9% 1000ML 1,000 ML IVS PRN ×2 (06:49→16:21)
[2017-05-10] MEDS ORDERED: NON-FORMULARY MEDICATION 1 EA MIS (Esomeprazole Magnesium [Nexium] 40 MG) PO SCH (10:00)
[2017-05-10] MEDS ORDERED: CYCLOBENZAPRINE HCL 10 MG TAB PO PRN (10:04)
[2017-05-10] MEDS ORDERED: HYDROmorphone HCL INJ 2 MG/ML VIAL ONE (10:37)
[2017-05-10] MEDS: OMEPRAZOLE CAP 20 MG CAP PO SCH (10:42)
[2017-05-10] MEDS: levETIRAcetam 250 MG TAB PO SCH ×2 (10:42→20:31)
[2017-05-10] MEDS: HYDROcodone 7.5MG/APAP 325MG 1 EA TAB PO PRN ×2 (10:42→16:18)
[2017-05-10] MEDS: HYDROmorphone HCL INJ 2 MG/ML VIAL IV PRN ×2 (10:43→23:37)
[2017-05-10] MEDS: ALPRAZolam 0.5 MG TAB PO SCH ×4 (10:43→20:31)
[2017-05-10] MEDS: diphenhydrAMINE HCL 25 MG CAP PO PRN (11:28)
[2017-05-10] MEDS ORDERED: traZODone HCL 100 MG TAB PO ONE (19:26)
[2017-05-10] MEDS ORDERED: CALCIUM CARBONATE (ANTACID) 500 MG CHEWABLE TAB PO PRN (19:57)
[2017-05-10] MEDS ORDERED: traZODone HCL 100 MG TAB PO SCH (21:00)
[2017-05-10] MEDS ORDERED: DOCUSATE SODIUM 100 MG CAP PO SCH (21:00)
[2017-05-11] MEDS: diphenhydrAMINE HCL 25 MG CAP PO PRN (02:53)
[2017-05-11] MEDS: SODIUM CHLORIDE 0.9% 1000ML 1,000 ML IVS PRN (02:56)
[2017-05-11] MEDS: HYDROcodone 7.5MG/APAP 325MG 1 EA TAB PO PRN (05:08)
[2017-05-11] MEDS: OMEPRAZOLE CAP 20 MG CAP PO SCH (05:30)
[2017-05-11] MEDS: ALPRAZolam 0.5 MG TAB PO SCH (09:02)
[2017-05-11] MEDS: levETIRAcetam 250 MG TAB PO SCH (09:02)
[2017-05-11 09:56] VITALS: BP 153/91; TEMP 97.1; O2SAT 97
--- NOTE | 2017-05-11 13:24 | DS ---
DISCHARGE DIAGNOSIS: 1. Acute renal injury with renal insufficiency, show some improvement, possibly aggravated by prerenal azotemia and dehydrated state. 2. Moderate dehydration state with supplementation of fluid, showing improvement. 3. Hyperkalemia, improved with hypovolemia correction. 4. Chronic "absence seizures" or episodes with diagnosis of petit mal type seizure activity being made in the past, currently on Keppra medication, yet will require both neurology and psychiatric clinic followup to assist with the management of these symptoms. 5. Chronic pain state on fentanyl and hydrocodone. 6. Chronic low back pain with degenerative changes, being tentatively scheduled by a back surgeon for surgical procedures in the near future. 7. History of recent cervical fusion because of advance degenerative changes. 8. Possibility of bipolar disorder, requiring psychiatric evaluation to assist with ongoing diagnosis and management care. 9. Chronic insomnia, possibly contributing to and aggravating some of the "absence" episodes with possible sleep apnea contributing to poor quality sleep with sleep study to be scheduled. 10. History of hypertension. 11. Elevated CPK, possibly related to chronic statin use versus possible underlying seizure disorder. HISTORY OF PRESENT ILLNESS: This 56-year-old, white male was admitted to the hospital because of significant symptoms of worsening absence spells suggesting possibly petit mal or temporal lobe seizure activity noted in the Emergency Room as well as [facility] during his stay. He was noted to primarily stare and stop speaking, though was able to follow with his eyes and was able to even remember the things that were happening while he was having these episodes. He has not been eating or drinking well recently and has been missing a lot of sleep. It is noted that even when given extra opportunities to get extra sleep that the absence spells are less frequent and are shorter duration. He has seen Dr. Owens, neurologist, in the past and will benefit by repeat evaluation. Attempts to reach Dr. Owens by phone were unsuccessful, but Dr. Ramirez will assist with scheduling. The patient had an MR of the spine about two years ago and will have continued followup for the back surgery. Unable to provide MRI of the head because of an elevated creatinine level, slowly showing improvement, with this to be performed at a later date as an outpatient. The patient was allowed to get extra sleep and in the process was feeling much improved on the morning of discharge, allowing us to continue with outpatient management program. LABORATORY: White count 13,200 on admission with 83% neutrophils, down to 7, 200 at discharge with 50% neutrophils. Hemoglobin stable at 11.3 Chemistries showed sodium 134, up to 138. Potassium 5.8, down to 4.5. BUN 44, down to 32. Creatinine 3.3, down to 1.76 with hydration, showing improvement. Glucose on discharge 86, calcium 9. CK 637 at his height, down to 225 at the time of discharge. AST slightly elevated at 43. Troponin 0, albumin 5.2, TSH 0.49. Urinalysis showed glycosuria and trace hematuria. Stool guaiac negative on one specimen. Urine drug screen positive for benzodiazepines. No cultures obtained. HOSPITAL COURSE: The patient was feeling much improved and ambulating without difficulty at the time of discharge. He was still having some of the absence episodes, but were less frequent and were of shorter duration at the time of discharge. PLAN: The patient is to be discharged to continue outpatient management under Dr. Ramirez specialized followup. He is to see Dr. Ramirez within the next week. Dr. Ramirez will assist in getting appointments for the patient at sleep study in the next few days as well as neuro clinic with Dr. Owens or whoever is available, with psychiatrist, Dr. Lacy or whoever is available, and with his back surgeon, Dr. Abrams at his next appointment for evaluation of his chronic back pain. Special emphasis on the patient getting quality sleep is important. To schedule an MRI of the brain with IV contrast the middle of next week when his renal function should be improved. Recheck a CBC and BMP in Dr. Ramirez' office in a week. Drink plenty of fluids. Stop the Zanaflex. May decrease the trazodone to 100 mg instead of 150 mg if side effects persist. Closely followup to help determine the etiology of his absence spells and return if not improving. #[id number] [facility]
[2017-05-12] MEDS ORDERED: fentaNYL PATCH 25 MCG/HR 1 EA PATCH TOP SCH (21:00)
== END 2017-05-11 12:20 | disposition home or self-care (01) | DRG 101 ==
LOC: ER 21:13 → MS 05-10 01:22 → OBSVTOIN 05-10 01:22 → UNDODISIN 05-11 11:00
PROVIDERS: ADMIT Emergency Medicine; ATTEND Emergency Medicine
DX: G40.409 Other generalized epilepsy and epileptic syndromes, not intractable, without status epilepticus (principal); N17.9 Acute kidney failure, unspecified; E86.0 Dehydration; E87.5 Hyperkalemia; G89.29 Other chronic pain; M54.5 Low back pain; F31.9 Bipolar disorder, unspecified; G47.00 Insomnia, unspecified; I10 Essential (primary) hypertension; R74.8 Abnormal levels of other serum enzymes; M54.2 Cervicalgia; Z79.891 Long term (current) use of opiate analgesic; Z98.1 Arthrodesis status; Z88.6 Allergy status to analgesic agent; Z88.8 Allergy status to other drugs, medicaments and biological substances; Z87.891 Personal history of nicotine dependence

== ENCOUNTER 2017-05-11 17:25 | Emergency (ER) | payer MEDICARE ==
[2017-05-11 17:37] VITALS: TEMP 99.1
--- NOTE | 2017-05-11 18:16 | ED.PDOC ---
History of Present Illness - General Chief Complaint: Behavioral / Psych Stated Complaint: psych problem Time Seen by Provider: 05/11/17 17:29 Source: patient, RN notes reviewed, Vital Signs reviewed, family - , RN/MD, old records Exam Limitations: no limitations - History of Present Illness Initial Comments: Patient was discharged from the hospital this morning for increasing episodes of seizures, insomnia and psychological issues. reports for several hours at home he was resting and doing well. He then dripped some Popsicle on himself and became irrationally upset. Started yelling and would not calm down. He finally walked out of the house. On the road a neighbor stopped to talk to him and he had a petite mal seizure. His seizure involves him becoming still/stiff, unable to talk or respond but eyes move and he remembers episode. and neighbors got him in the truck. He became upset again, wanted to call police on his . He could not calm him down so she brought him back to the ER. On the way here he opened the truck door while the car was moving. He arrived @ the ER yelling in the waiting room and banging on the door. Patient reports everything is fine. He was following his discharge instructions. It is his who needs help. He is only here to appease her. During conversation he can not stay on tract. Continuously interrupts, not even letting me finish a sentence or thought. HE has very rapid speech and his responses don't correspond to the topic or the question asked. He is very agitated. Timing/Duration: just prior to arrival Severity: moderate Associated Symptoms: anxiety, impaired concentration, insomnia Allergies/Adverse Reactions: Allergies Tramadol Allergy (Verified 12/12/16 02:41) Zolpidem [From Ambien] Allergy (Verified 12/12/16 02:41) Acetaminophen [From Fioricet] Adverse Reaction (Verified 02/18/16 17:58) Other Butalbital [From Fioricet] Adverse Reaction (Verified 02/18/16 17:58) Other Caffeine [From Fioricet] Adverse Reaction (Verified 02/18/16 17:58) Other Home Medications: Ambulatory Orders RX: Alprazolam [Xanax] 1 mg PO TID 08/23/14 RX: Esomeprazole Magnesium [Nexium] 40 mg PO DAILY 08/23/14 RX: Gemfibrozil 600 mg PO BID 08/23/14 RX: Lovastatin 20 mg PO DAILY 08/23/14 RX: Trazodone HCl 150 mg PO BEDTIME 08/23/14 RX: Levetiracetam [Keppra] 500 mg PO BID 08/30/15 RX: Lisinopril & Hydrochlorothiazi [Lisinopril/Hctz 20-25 mg] 1 tab PO DAILY RX: HYDROcodone 5MG/APAP 325MG [[place] 5/325] 7.5 mg PO Q6HR PRN 02/18/16 RX: fentaNYL PATCH 25 MCG/HR [Duragesic Patch 25 MCG/HR] 25 mcg TOP .Q72H Review of Systems - Review of Systems Constitutional: States: no symptoms reported EENTM: States: no symptoms reported Respiratory: States: no symptoms reported Cardiology: States: no symptoms reported Gastrointestinal/Abdominal: States: no symptoms reported Musculoskeletal: States: no symptoms reported Skin: States: no symptoms reported Neurological: States: see HPI, seizure All other Systems: No Change from Baseline Past Medical History (General) - Patient Medical History Hx Seizures: Yes Hx Stroke: Yes - History of heat stroke 2011 Hx Dementia: No Hx Asthma: No Hx of COPD: No Hx Cardiac Disorders: No Hx Congestive Heart Failure: No Hx Pacemaker: No Hx Hypertension: Yes Hx Thyroid Disease: No Hx Diabetes: No Hx Gastroesophageal Reflux: Yes Hx Renal Disease: No Hx Cancer: No Hx of HIV: No Hx Hepatitis C: No Hx MRSA: No Surgical History: appendectomy - Vaccination History Hx Tetanus, Diphtheria Vaccination: Yes Hx Influenza Vaccination: Yes Hx Pneumococcal Vaccination: No - Social History Hx Tobacco Use: Yes Hx Chewing Tobacco Use: No Hx Alcohol Use: Yes - 3 beers a day Hx Substance Use: No Hx Substance Use Treatment: No Hx Depression: Yes Hx Physical Abuse: No Hx Emotional Abuse: No Hx Suspected Abuse: No - Female History Patient : No Family Medical History - Family History Father Living Status: Hx Family Stroke: Yes Hx Family Cancer: Yes - pancreas-dad Hx Family;Other: Down syndrome Physical Exam - Physical Exam General Appearance: Agitated, Restless, Well Developed, Well Groomed, Well Hydrated, Well Nourished Neck: full range of motion, supple, normal inspection Respiratory: no respiratory distress, no accessory muscle use Extremities Exam: normal range of motion, no evidence of injury Neurological: anxious, other - Very agitated, easily irritable. Can't stay on tract with conversation, pressured speech. He did have another episode of not responding but quickly returned to baseline. Behavior/Eye Contact/Speech: increased rate of speech Thoughts/Hallucinations: flight of ideas, grandiose, persecution Skin Exam: normal color, warm/dry Progress - Progress Progress: 05/11/17 18:19 Will consult [facility] for evaluation. 05/11/17 20:15 Patient seen by plant specialist. He agrees to admission to psychiatric hospital. Discussed with Dr. Longoria @ [facility] who accepted the patient. Departure - Departure Clinical Impression: Psychiatric disorder, Seizure disorder Time of Disposition: 20:16 Disposition: Transfer to [facility] Hospital Condition: Poor Departure Forms: ED Discharge - Pt. Copy, Patient Portal Self Enrollment Referrals: Riley Ramirez MD [Primary Care Provider] - 1-2 Weeks Home Medications: Ambulatory Orders RX: Alprazolam [Xanax] 1 mg PO TID 08/23/14 RX: Esomeprazole Magnesium [Nexium] 40 mg PO DAILY 08/23/14 RX: Gemfibrozil 600 mg PO BID 08/23/14 RX: Lovastatin 20 mg PO DAILY 08/23/14 RX: Trazodone HCl 150 mg PO BEDTIME 08/23/14 RX: Levetiracetam [Keppra] 500 mg PO BID 08/30/15 RX: Lisinopril & Hydrochlorothiazi [Lisinopril/Hctz 20-25 mg] 1 tab PO DAILY RX: HYDROcodone 5MG/APAP 325MG [[place] 5/325] 7.5 mg PO Q6HR PRN 02/18/16 RX: fentaNYL PATCH 25 MCG/HR [Duragesic Patch 25 MCG/HR] 25 mcg TOP .Q72H Transfer to Outside Facility - Transfer Information Accepting Provider:: Dr. Longoria Accepting Facility: [facility] Reason for Transfer: required specialist not available
[2017-05-11 20:44] VITALS: BP 148/91; O2SAT 98
== END 2017-05-11 21:05 ==
LOC: ER 17:25
DX: F99 Mental disorder, not otherwise specified (principal); G40.909 Epilepsy, unspecified, not intractable, without status epilepticus; I10 Essential (primary) hypertension; Z88.8 Allergy status to other drugs, medicaments and biological substances; Z79.899 Other long term (current) drug therapy; Z87.891 Personal history of nicotine dependence

== ENCOUNTER → 2017-05-25 | Outpatient (CLI) | payer MEDICARE ==
--- NOTE | 2017-05-28 10:39 | MRI ---
EXAM DESCRIPTION: Lumbar Spine w/o Contrast CLINICAL HISTORY: LOW BACK PAIN COMPARISON: February 10, 2015. Report is not available Desiccation. TECHNIQUE: Multiplanar, multisequence MRI of the lumbar spine was performed without contrast. FINDINGS: GENERAL Lumbar vertebral bodies show normal height without compression deformity. Alignment of the lumbar spine is unremarkable. 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 Conus medullaris terminates at T12-L1 and is unremarkable. Visualized intra-abdominal retroperitoneal structures show no acute findings. L1-2 Disc desiccation without significant disc space narrowing. No significant spinal canal stenosis or foraminal encroachment. L2-3 Disc desiccation and mild diffuse disc space narrowing is seen. There are Modic type II degenerative endplate signal changes anteriorly. There is a 3 mm broad-based disc bulge eccentric towards the left mildly flattening the ventral surface of the thecal sac contributing to mild spinal canal stenosis. There is mild bilateral foraminal encroachment. Mild left lateral recess encroachment. The previously seen disc protrusion posterior to the inferior endplate of L2 on previous examination to the left of midline is resolved. L3-4 Disc desiccation and mild loss of disc space height is seen with 2 to 3 mm broad-based disc bulge flattening the ventral surface of the thecal sac contributing to mild spinal canal stenosis and mild bilateral foraminal encroachment similar to previous. L4-5 Mild disc desiccation without significant loss of disc space height. No significant spinal canal stenosis. There is mild bilateral facet arthropathy contributing to mild left greater than right foraminal encroachment. L5-S1 Disc desiccation and moderate loss of disc space height is seen. There are Modic type II degenerative endplate signal changes. Trace retrolisthesis of L5 on S1 is noted with mild bilateral facet hypertrophic and degenerative changes. Mild circumferential ridging disc osteophyte complex is seen. No significant spinal canal stenosis. There is mild right lateral recess encroachment. Severe bilateral foraminal encroachment is seen with loss of normal fat signal from around the exiting nerve roots. The disc protrusion/extrusion in the right lateral recess seen on previous exam is not well identified on today's exam. There is also mild far lateral disc osteophytic ridging bilaterally. 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 Multilevel mild to moderate disc degenerative changes and facet arthropathy of the lumbar spine is again seen. Severe bilateral foraminal encroachment at L5-S1 is again seen. The disc protrusion seen at L2-3 and L5-S1 on previous exam are less well identified or resolved on today's exam. Electronically signed by: Arjun Beaver MD 05/28/2017 10:38 AM CDT
== END ==
LOC: MRI 10:15
DX: M54.16 Radiculopathy, lumbar region (principal); M48.06 Spinal stenosis, lumbar region; M54.5 Low back pain

== ENCOUNTER 2017-07-11 14:53 | Emergency (ER) | payer MEDICARE ==
[2017-07-11 15:06] VITALS: BP 157/84; TEMP 98.6; O2SAT 95
--- NOTE | 2017-07-11 15:50 | ED.PDOC ---
History of Present Illness - General Chief Complaint: General Stated Complaint: medication refill Time Seen by Provider: 07/11/17 15:47 Source: patient Exam Limitations: no limitations - History of Present Illness Initial Comments: PT PRESENTS TO ED REQUESTING MEDICATION REFILL FOR 2 MONTHS WORTH OF XANAX, STATING HIS PCP, DR. RAMIREZ WILL NO LONGER PRESCRIBE HIS MEDS AND HIS APPT TO FOLLOW UP WITH A PSYCHIATRIST IS 2 MONTHS FROM NOW. Allergies/Adverse Reactions: Allergies Tramadol Allergy (Verified 07/11/17 15:07) Zolpidem [From Ambien] Allergy (Verified 07/11/17 15:07) Acetaminophen [From Fioricet] Adverse Reaction (Verified 07/11/17 15:07) Other Butalbital [From Fioricet] Adverse Reaction (Verified 07/11/17 15:07) Other Caffeine [From Fioricet] Adverse Reaction (Verified 07/11/17 15:07) Other Home Medications: Ambulatory Orders Alprazolam [Xanax] 1 mg PO TID 08/23/14 Esomeprazole Magnesium [Nexium] 40 mg PO DAILY 08/23/14 Gemfibrozil 600 mg PO BID 08/23/14 Lovastatin 20 mg PO DAILY 08/23/14 Trazodone HCl 150 mg PO BEDTIME 08/23/14 Levetiracetam [Keppra] 500 mg PO BID 08/30/15 Lisinopril & Hydrochlorothiazi [Lisinopril/Hctz 20-25 mg] 1 tab PO DAILY HYDROcodone 5MG/APAP 325MG [[place] 5/325] 7.5 mg PO Q6HR PRN 02/18/16 fentaNYL PATCH 25 MCG/HR [Duragesic Patch 25 MCG/HR] 25 mcg TOP .Q72H 12/12/16 Alprazolam [Xanax] 1 mg PO TID #9 tab 07/11/17 Review of Systems - Review of Systems Constitutional: Denies: chills, fever Musculoskeletal: States: back pain, muscle pain, neck pain Neurological: States: anxiety. Denies: depressed, paresthesia Endocrine: Denies: excessive sweating, increased hunger Past Medical History (General) - Patient Medical History Hx Seizures: Yes Hx Stroke: Yes - History of heat stroke 2010 Hx Dementia: No Hx Asthma: No Hx of COPD: No Hx Cardiac Disorders: No Hx Congestive Heart Failure: No Hx Pacemaker: No Hx Hypertension: Yes Hx Thyroid Disease: No Hx Diabetes: No Hx Gastroesophageal Reflux: Yes Hx Renal Disease: No Hx Cancer: No Hx of HIV: No Hx Hepatitis C: No Hx MRSA: No - Vaccination History Hx Tetanus, Diphtheria Vaccination: Yes Hx Influenza Vaccination: No Hx Pneumococcal Vaccination: No - Social History Hx Tobacco Use: Yes Hx Chewing Tobacco Use: No Hx Alcohol Use: Yes - wine 4x weekly Hx Substance Use: No Hx Substance Use Treatment: No Hx Depression: Yes Hx Physical Abuse: No Hx Emotional Abuse: No Hx Suspected Abuse: No - Activities of Daily Living Hospice Agency (if applicable):: None - Female History Patient : No Family Medical History - Family History Father Living Status: Hx Family Stroke: Yes Hx Family Cancer: Yes - pancreas-dad Hx Family;Other: Down syndrome Physical Exam - Physical Exam General Appearance: Alert, Comfortable, No apparent distress Ears, Nose, Throat: hearing grossly normal Neck: normal inspection Respiratory: no respiratory distress Back Exam: normal inspection Extremity: normal inspection Neurologic: alert, normal mood/affect, oriented x 3 Skin Exam: normal color, warm/dry Progress - Progress Progress: 07/11/17 15:53 I EXPLAINED TO THE PT THAT I COULD NOT PRESCRIBE MORE THAN A FEW DAYS OF XANAX. I ENCOURAGED PT TO FOLLOW UP WITH PCP AND SUGGEST HE BE PLACED ON A WEANING PROGRAM. Departure - Departure Clinical Impression: Medication refill, Anxiety Time of Disposition: 15:48 Disposition: Discharge to Home or Self Care Condition: Good Departure Forms: ED Discharge - Pt. Copy, Patient Portal Self Enrollment Instructions: DI for Anxiety -- Adult Referrals: Riley Ramirez MD [Primary Care Provider] - 1-2 Weeks Prescriptions: Alprazolam [Xanax] 1 mg PO TID #9 tab Home Medications: Ambulatory Orders Alprazolam [Xanax] 1 mg PO TID 08/23/14 Esomeprazole Magnesium [Nexium] 40 mg PO DAILY 08/23/14 Gemfibrozil 600 mg PO BID 08/23/14 Lovastatin 20 mg PO DAILY 08/23/14 Trazodone HCl 150 mg PO BEDTIME 08/23/14 Levetiracetam [Keppra] 500 mg PO BID 08/30/15 Lisinopril & Hydrochlorothiazi [Lisinopril/Hctz 20-25 mg] 1 tab PO DAILY HYDROcodone 5MG/APAP 325MG [[place] 5/325] 7.5 mg PO Q6HR PRN 02/18/16 fentaNYL PATCH 25 MCG/HR [Duragesic Patch 25 MCG/HR] 25 mcg TOP .Q72H 12/12/16 Alprazolam [Xanax] 1 mg PO TID #9 tab 07/11/17
== END 2017-07-11 16:01 | disposition home or self-care (01) ==
LOC: ER 14:53
DX: Z76.0 Encounter for issue of repeat prescription (principal); F41.9 Anxiety disorder, unspecified; Z79.899 Other long term (current) drug therapy; Z88.8 Allergy status to other drugs, medicaments and biological substances

== ENCOUNTER 2017-07-12 00:07 | Emergency (ER) | payer MEDICARE ==
[2017-07-12 00:29] VITALS: TEMP 97.6
[2017-07-12] MEDS ORDERED: LIDOCAINE 1% W/ EPINEPHRINE 20 ML VIAL INJ ONE (00:29)
[2017-07-12] MEDS ORDERED: LIDOCAINE 1% 50 ML VIAL INJ ONE (00:29)
[2017-07-12] MEDS ORDERED: CHLORHEXIDINE GLUCONATE 4 % 15 ML UD TOP ONE (00:29)
--- NOTE | 2017-07-12 00:37 | ED.PDOC ---
History of Present Illness - General Chief Complaint: Laceration Stated Complaint: head laceration Time Seen by Provider: 07/12/17 00:23 Source: patient, RN notes reviewed, Vital Signs reviewed Exam Limitations: no limitations - History of Present Illness Initial Comments: Patient comes in to ER with laceration to the back of his head. 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 No LOC. No neck pain. He is not taking his Keppra and was drinking tonight. Feels it is due to having to cut back on his Xanax dose due to his PCP refusing to fill it for him. Timing/Duration: just prior to arrival Severity: moderate Location: scalp Improving Factors: nothing Worsening Factors: nothing Associated Symptoms: denies symptoms Allergies/Adverse Reactions: Allergies Tramadol Allergy (Verified 07/12/17 00:31) Zolpidem [From Ambien] Allergy (Verified 07/12/17 00:31) Acetaminophen [From Fioricet] Adverse Reaction (Verified 07/12/17 00:31) Other Butalbital [From Fioricet] Adverse Reaction (Verified 07/12/17 00:31) Other Caffeine [From Fioricet] Adverse Reaction (Verified 07/12/17 00:31) Other Home Medications: Ambulatory Orders Alprazolam [Xanax] 1 mg PO TID 08/23/14 Esomeprazole Magnesium [Nexium] 40 mg PO DAILY 08/23/14 Trazodone HCl 150 mg PO BEDTIME 08/23/14 HYDROcodone 5MG/APAP 325MG [[place] 5/325] 5 mg PO Q8HR PRN 02/18/16 fentaNYL PATCH 25 MCG/HR [Duragesic Patch 25 MCG/HR] 25 mcg TOP .Q72H 12/12/16 Lisinopril & Hydrochlorothiazi [Lisinopril/Hctz 20-25 mg] 1 tab PO DAILY Tizanidine HCl [Zanaflex] 8 mg PO Q8HR 07/12/17 Review of Systems - Review of Systems Constitutional: States: no symptoms reported EENTM: States: no symptoms reported Respiratory: States: no symptoms reported Cardiology: States: no symptoms reported Musculoskeletal: States: no symptoms reported. Denies: neck pain Skin: States: see HPI Neurological: States: seizure All other Systems: No Change from Baseline Past Medical History (General) - Patient Medical History Hx Seizures: Yes Hx Stroke: Yes - History of heat stroke 2010 Hx Dementia: No Hx Asthma: No Hx of COPD: No Hx Cardiac Disorders: No Hx Congestive Heart Failure: No Hx Pacemaker: No Hx Hypertension: Yes Hx Thyroid Disease: No Hx Diabetes: No Hx Gastroesophageal Reflux: Yes Hx Renal Disease: No Hx Cancer: No Hx of HIV: No Hx Hepatitis C: No Hx MRSA: No Surgical History: tonsillectomy - Vaccination History Hx Tetanus, Diphtheria Vaccination: Yes Hx Influenza Vaccination: No Hx Pneumococcal Vaccination: No - Social History Hx Tobacco Use: Yes Hx Chewing Tobacco Use: No Hx Alcohol Use: Yes - wine 4x weekly Hx Substance Use: No Hx Substance Use Treatment: No Hx Depression: Yes Feels Threatened In Home Enviroment: No Feels Threatened In a Relationship: No Hx Physical Abuse: No Hx Emotional Abuse: No Hx Suspected Abuse: No - Female History Patient : No Family Medical History - Family History Father Living Status: Hx Family Stroke: Yes Hx Family Cancer: Yes - pancreas-dad Hx Family;Other: Down syndrome Physical Exam - Physical Exam General Appearance: Alert, Comfortable, No apparent distress, Well Developed, Well Groomed, Well Hydrated, Well Nourished, Other - smells of Etoh Eyes, Ears, Nose, Throat Exam: PERRL/EOMI, normal ENT inspection Neck: non-tender, full range of motion, supple, normal inspection Cardiovascular/Chest: normal peripheral pulses, regular rate, rhythm, no gallop , no JVD, no murmur Respiratory: lungs clear, normal breath sounds, no respiratory distress, no accessory muscle use Extremity: normal inspection Neurologic: advertising director II-XII nml as tested, no motor/sensory deficits, alert, normal mood/affect, oriented x 3 Skin Exam: warm/dry, normal color Skin Problem Location: scalp Skin Character: other - Laceration X2 - 1: semicircular 8cm, 2: linear 4cm. Bleeding well controlled on both Comments: Vital Signs 07/12/17 00:10 Temperature 97.6 F Pulse Rate [ 79 monitor] Respiratory 18 Rate Blood Pressure 100/64 [Right Arm] O2 Sat by Pulse 99 Oximetry Procedures - Laceration/Wound Repair Posterior Head Wound Length (cm): 12 - 1: 8cm, 2: 4cm Wound's Depth, Shape: into muscle, linear Wound Explored: no foreign body removed Irrigated w/ Saline (cc's): 250 Betadine Prep?: No - cleaned with Hibiclenz & Saline Volume Anesthetic (cc's): 5 - LET solution Wound Debrided: minimal Wound Repaired With: guanako Number of Sutures: 22 - 1: 16 guanako, 2: 6 guanako Layer Closure?: No Sterile Dressing Applied?: Yes - Pressure dressing applied by nurse Departure - Departure Clinical Impression: Laceration of scalp without complication Qualifiers: Encounter type: initial encounter Qualified Code(s): S01.01XA - Laceration without foreign body of scalp, initial encounter ICD-10 Supporting Text: X2 - 2 separate scalp lacerations Time of Disposition: :10 Disposition: Discharge to Home or Self Care Condition: Good Departure Forms: ED Discharge - Pt. Copy, Patient Portal Self Enrollment Instructions: DI for Laceration Repair -- Guanako Diet: resume usual diet Activity: increase activity as tolerated Referrals: Riley Ramirez MD [Primary Care Provider] - 1-2 Weeks Home Medications: Ambulatory Orders Alprazolam [Xanax] 1 mg PO TID 08/23/14 Esomeprazole Magnesium [Nexium] 40 mg PO DAILY 08/23/14 Trazodone HCl 150 mg PO BEDTIME 08/23/14 HYDROcodone 5MG/APAP 325MG [[place] 5/325] 5 mg PO Q8HR PRN 02/18/16 fentaNYL PATCH 25 MCG/HR [Duragesic Patch 25 MCG/HR] 25 mcg TOP .Q72H 12/12/16 Lisinopril & Hydrochlorothiazi [Lisinopril/Hctz 20-25 mg] 1 tab PO DAILY Tizanidine HCl [Zanaflex] 8 mg PO Q8HR 07/12/17 Additional Instructions: Will needs guanako removed either here or with PCP in 7-10 days
[2017-07-12 01:16] VITALS: BP 111/65; O2SAT 97
== END 2017-07-12 01:16 | disposition home or self-care (01) ==
LOC: ER 00:07
DX: S01.01XA Laceration without foreign body of scalp, initial encounter (principal); G40.A09 Absence epileptic syndrome, not intractable, without status epilepticus; I10 Essential (primary) hypertension; Z87.891 Personal history of nicotine dependence; K21.9 Gastro-esophageal reflux disease without esophagitis; Z79.899 Other long term (current) drug therapy; Z88.8 Allergy status to other drugs, medicaments and biological substances; W19.XXXA Unspecified fall, initial encounter

== ENCOUNTER → 2017-08-07 | Outpatient (CLI) | payer MEDICARE | END | disposition home or self-care (01) | LOC: GMAJ 14:50 | PROVIDERS: ATTEND Family Medicine | DX: R94.5 Abnormal results of liver function studies (principal) ==

== ENCOUNTER → 2017-08-13 | Outpatient (CLI) | payer MEDICARE ==
--- NOTE | 2017-08-14 09:11 | US ---
EXAM DESCRIPTION: Abdomen,Complete: Ultrasound. CLINICAL HISTORY: ABN RESULTS OF LIVER FUNCTION STUDIES COMPARISON: None Available. TECHNIQUE: Transabdominal scannin-dimensional and Doppler modes. FINDINGS: The gallbladder is normal in size, shape, and echogenicity, with no intraluminal stones or sludge. No fluid around the gallbladder. Wall thickness normal. 2.1 mm. Common bile duct caliber 6.0 mm which is minimally dilated. No stones in the visualized portion of the duct. Not tender with transducer pressure. The liver demonstrates heterogeneously increased echogenicity; contour of the liver capsule is smooth where seen. No fluid around the liver. Intrahepatic biliary ducts are non-dilated. Craniocaudal dimension in the mid-clavicular axis is 19.3 cm. Pancreas head, body, and tail normal in size and echogenicity. Pancreatic duct is not dilated. Normal Doppler vascularity in the jaylyn hepatis. Abdominal aorta diameter proximal 2.5 cm. Mid 2.1 cm. Distal 1.3 cm. IVC visualized; normal caliber. Spleen normal echogenicity; long axis measurement is 8.5 cm. No fluid in the spleno-renal fossa. Right kidney measures 10.9 x 5.5 x 5.0 cm mid renal cortical thickness 10 mm. Minimally increased Echogenicity . No hydronephrosis, no large calcifications, and no perinephric fluid. Contour smooth. Vascularity normal. Ureter not visualized. Left kidney measures 11.0 x 6.7 x 6.6 cm ; mid renal cortical thickness 11 mm. Increased Echogenicity . No hydronephrosis, no large calcifications, and no perinephric fluid. Contour smooth. Vascularity normal. Ureter not visualized. IMPRESSION: 1. No gallbladder stones or sludge. No wall thickening. Minimal dilation of the common bile duct. If gallbladder function remains a clinical question, consider hepatobiliary imaging. Normal ultrasound of the pancreas. 2. Hepatomegaly with fatty infiltration/steatosis. This can be a result of obesity or secondary to metabolic or toxic conditions. No ascites. No intrahepatic dilatation. 3. Normal ultrasound of the spleen. Normal caliber of the aorta. 4. Kidneys normal size but bilateral cortical thinning with increased echogenicity. Correlate for medical renal disease. Electronically signed by: oRmie tSout MD 08/14/2017 9:10 AM CDT
== END | disposition home or self-care (01) ==
LOC: US 08:59
PROVIDERS: ATTEND Family Medicine
DX: R94.5 Abnormal results of liver function studies (principal)

== ENCOUNTER → 2017-12-10 | Outpatient (CLI) | payer OTHER | LOC: GMAJ 10:54 | PROVIDERS: ATTEND Family Medicine | DX: Z12.5 Encounter for screening for malignant neoplasm of prostate (principal) ==

== ENCOUNTER 2018-02-26 18:31 | Emergency (ER) | payer MEDICARE ==
--- NOTE | 2018-02-26 17:37 | ED.PDOC ---
History of Present Illness - General Chief Complaint: Behavioral / Psych Stated Complaint: NONE Time Seen by Provider: 02/26/18 16:22 Source: patient, family, police Exam Limitations: no limitations - History of Present Illness Initial Comments: PT BROUGHT TO THE ED BY HIS DUE TO MANIC BEHAVIOR THAT HAS BEEN PROGRESSIVELY ESCALATING OVER THE PAST FEW DAYS. PT REPORTS THAT HE IS BEING WEANED OFF OF HIS PAIN MEDS AND ANXIETY MEDS AND HE IS FEELING ANXIOUS. PT DENIES SUICIDAL OR HOMICIDAL IDEATION. Timing/Duration: getting worse Severity: moderate Associated Symptoms: anxiety, insomnia Allergies/Adverse Reactions: Allergies Tramadol Allergy (Verified 07/12/17 00:31) Zolpidem [From Ambien] Allergy (Verified 07/12/17 00:31) Acetaminophen [From Fioricet] Adverse Reaction (Verified 07/12/17 00:31) Other Butalbital [From Fioricet] Adverse Reaction (Verified 07/12/17 00:31) Other Caffeine [From Fioricet] Adverse Reaction (Verified 07/12/17 00:31) Other Home Medications: Ambulatory Orders Alprazolam [Xanax] 1 mg PO TID 08/23/14 Esomeprazole Magnesium [Nexium] 40 mg PO DAILY 08/23/14 Trazodone HCl 150 mg PO BEDTIME 08/23/14 HYDROcodone 5MG/APAP 325MG [Whitney 5/325] 5 mg PO Q8HR PRN 02/18/16 fentaNYL PATCH 25 MCG/HR [Duragesic Patch 25 MCG/HR] 25 mcg TOP .Q72H 12/12/16 Lisinopril & Hydrochlorothiazi [Lisinopril/Hctz 20-25 mg] 1 tab PO DAILY Tizanidine HCl [Zanaflex] 8 mg PO Q8HR 07/12/17 Review of Systems - Review of Systems Constitutional: Denies: chills, fever EENTM: Denies: nose congestion, throat pain Respiratory: Denies: cough, short of breath Cardiology: Denies: chest pain, palpitations Genitourinary: Denies: discharge, frequency Past Medical History (General) - Patient Medical History Hx Seizures: Yes Hx Stroke: Yes - History of heat stroke 2010 Hx Dementia: No Hx Asthma: No Hx of COPD: No Hx Cardiac Disorders: No Hx Congestive Heart Failure: No Hx Pacemaker: No Hx Hypertension: Yes Hx Thyroid Disease: No Hx Diabetes: No Hx Gastroesophageal Reflux: Yes Hx Renal Disease: No Hx Cancer: No Hx of HIV: No Hx Hepatitis C: No Hx MRSA: No - Vaccination History Hx Tetanus, Diphtheria Vaccination: Yes Hx Influenza Vaccination: No Hx Pneumococcal Vaccination: No - Social History Hx Tobacco Use: Yes Hx Chewing Tobacco Use: No Hx Alcohol Use: Yes - wine 4x weekly Hx Substance Use: No Hx Substance Use Treatment: No Hx Depression: Yes Hx Physical Abuse: No Hx Emotional Abuse: No Hx Suspected Abuse: No - Female History Patient : No Family Medical History - Family History Father Living Status: Hx Family Stroke: Yes Hx Family Cancer: Yes - pancreas-dad Hx Family;Other: Down syndrome Physical Exam - Physical Exam General Appearance: Agitated, Alert, Anxious, No apparent distress, Unkempt, Well Developed, Well Hydrated Eyes, Ears, Nose, Throat Exam: normal ENT inspection Neck: full range of motion, supple Respiratory: lungs clear, normal breath sounds, no respiratory distress Cardiovascular/Chest: regular rate, rhythm, no murmur Gastrointestinal/Abdominal: non tender, soft Neurological: oriented x 3, agitated, anxious Appearance: disheveled, impaired insight Behavior/Eye Contact/Speech: cooperative, increased rate of speech Thoughts/Hallucinations: delusions, flight of ideas Skin Exam: normal color, warm/dry Progress - Progress Progress: 02/26/18 17:40 PT REFUSES TO SPEAK WITH [facility] AFTER BEING MEDICALLY CLEARED. POLICE WERE CALLED TO PICK PATIENT UP. - Results/Orders Results/Orders: Laboratory Results - last 24 hr 02/26/18 02/26/18 02/26/18 15:17 15:35 15:35 WBC 10.4 RBC 4.46 L Hgb 14.4 Hct 42.0 MCV 94.1 H MCH 32.2 H MCHC 34.4 RDW 13.1 Plt Count 336 MPV 7.9 Absolute Neuts (auto) 7.40 H Absolute Lymphs (auto) 1.90 Absolute Monos (auto) 1.00 H Absolute Eos (auto) 0.00 Absolute Basos (auto) 0.10 Neutrophils % 70.6 Lymphocytes % 18.3 L Monocytes % 9.8 H Eosinophils % 0.4 L Basophils % 0.9 Sodium 133 L Potassium 3.1 L Chloride 97 L Carbon Dioxide 27 Anion Gap 12.1 BUN 26 H Creatinine 0.99 BUN/Creatinine Ratio 26.3 H Random Glucose 123 H Serum Osmolality 272.5 L Calcium 9.6 Total Bilirubin 1.1 H AST 46 H ALT 43 Alkaline Phosphatase 46 Serum Total Protein 7.7 Albumin 4.9 Globulin 2.8 Albumin/Globulin Ratio 1.8 Urine Color Urine Appearance Urine pH Ur Specific Gary Urine Protein Urine Glucose (UA) Urine Ketones Urine Blood Urine Nitrite Urine Bilirubin Urine Urobilinogen Ur Leukocyte Esterase Urine RBC Urine WBC Ur Epithelial Cells Urine Mucus Urine Opiates Screen Negative Acetaminophen < 10.0 L Urine Barbiturates Negative Ur Phencyclidine Scrn Negative U Amphetamin/Meth Scrn Negative U Benzodiazepines Scrn Positive H U Cocaine Metab Screen Negative U Cannabinoids Screen Positive H Ethyl Alcohol 02/26/18 02/26/18 15:35 16:50 WBC RBC Hgb Hct MCV MCH MCHC RDW Plt Count MPV Absolute Neuts (auto) Absolute Lymphs (auto) Absolute Monos (auto) Absolute Eos (auto) Absolute Basos (auto) Neutrophils % Lymphocytes % Monocytes % Eosinophils % Basophils % Sodium Potassium Chloride Carbon Dioxide Anion Gap BUN Creatinine BUN/Creatinine Ratio Random Glucose Serum Osmolality Calcium Total Bilirubin AST ALT Alkaline Phosphatase Serum Total Protein Albumin Globulin Albumin/Globulin Ratio Urine Color Yellow Urine Appearance Clear Urine pH 6.0 Ur Specific Gary 1.020 Urine Protein 30 Urine Glucose (UA) Negative Urine Ketones 15 H Urine Blood Moderate H Urine Nitrite Negative Urine Bilirubin Small H Urine Urobilinogen 1.0 Ur Leukocyte Esterase Negative Urine RBC 5-10 H Urine WBC 3-5 H Ur Epithelial Cells 1-3 Urine Mucus Small Urine Opiates Screen Acetaminophen Urine Barbiturates Ur Phencyclidine Scrn U Amphetamin/Meth Scrn U Benzodiazepines Scrn U Cocaine Metab Screen U Cannabinoids Screen Ethyl Alcohol < 5.40 Departure - Departure Clinical Impression: History of bipolar disorder, Manic behavior Time of Disposition: 17:35 Disposition: Discharge to Home or Self Care Condition: Fair Departure Forms: ED Discharge - Pt. Copy, Patient Portal Self Enrollment Instructions: DI for Bipolar Disorder Referrals: Riley Ramirez MD [Primary Care Provider] - 1-2 Weeks Home Medications: Ambulatory Orders Alprazolam [Xanax] 1 mg PO TID 08/23/14 Esomeprazole Magnesium [Nexium] 40 mg PO DAILY 08/23/14 Trazodone HCl 150 mg PO BEDTIME 08/23/14 HYDROcodone 5MG/APAP 325MG [Whitney 5/325] 5 mg PO Q8HR PRN 02/18/16 fentaNYL PATCH 25 MCG/HR [Duragesic Patch 25 MCG/HR] 25 mcg TOP .Q72H 12/12/16 Lisinopril & Hydrochlorothiazi [Lisinopril/Hctz 20-25 mg] 1 tab PO DAILY Tizanidine HCl [Zanaflex] 8 mg PO Q8HR 07/12/17
--- NOTE | 2018-02-26 20:02 | ED.PDOC ---
History of Present Illness - General Chief Complaint: Laceration Stated Complaint: head lac Time Seen by Provider: 02/26/18 19:57 Source: patient, RN notes reviewed, Vital Signs reviewed, family Exam Limitations: no limitations - History of Present Illness Timing/Duration: 1 hour Severity: mild Improving Factors: nothing Worsening Factors: nothing Associated Symptoms: other - reports people out to get him Allergies/Adverse Reactions: Allergies Tramadol Allergy (Verified 02/26/18 21:29) Zolpidem [From Ambien] Allergy (Verified 02/26/18 21:29) Acetaminophen [From Fioricet] Adverse Reaction (Verified 02/26/18 21:29) Other Butalbital [From Fioricet] Adverse Reaction (Verified 02/26/18 21:29) Other Caffeine [From Fioricet] Adverse Reaction (Verified 02/26/18 21:29) Other Home Medications: Ambulatory Orders Alprazolam [Xanax] 1 mg PO TID 08/23/14 Esomeprazole Magnesium [Nexium] 40 mg PO DAILY 08/23/14 Trazodone HCl 150 mg PO BEDTIME 08/23/14 fentaNYL PATCH 25 MCG/HR [Duragesic Patch 25 MCG/HR] 25 mcg TOP .Q72H 12/12/16 Lisinopril & Hydrochlorothiazi [Lisinopril/Hctz 20-25 mg] 1 tab PO DAILY Escitalopram [Lexapro] 10 mg PO DAILY 02/26/18 Methocarbamol [Robaxin] 750 mg PO Q8H PRN 02/26/18 Oxycodone HCl [Roxicodone] 15 mg PO TID 02/26/18 Review of Systems - Review of Systems Constitutional: States: no symptoms reported EENTM: States: no symptoms reported Respiratory: States: no symptoms reported Cardiology: States: no symptoms reported Gastrointestinal/Abdominal: States: no symptoms reported Genitourinary: States: no symptoms reported Musculoskeletal: States: no symptoms reported Skin: States: other - abrasion Neurological: States: anxiety Endocrine: States: no symptoms reported Hematologic/Lymphatic: States: no symptoms reported Past Medical History (General) - Patient Medical History Hx Seizures: Yes Hx Stroke: Yes - History of heat stroke 2011 Hx Dementia: No Hx Asthma: No Hx of COPD: No Hx Cardiac Disorders: No Hx Congestive Heart Failure: No Hx Pacemaker: No Hx Hypertension: Yes Hx Thyroid Disease: No Hx Diabetes: No Hx Gastroesophageal Reflux: Yes Hx Renal Disease: No Hx Cancer: No Hx of HIV: No Hx Hepatitis C: No Hx MRSA: No - Vaccination History Hx Tetanus, Diphtheria Vaccination: Yes Hx Influenza Vaccination: No Hx Pneumococcal Vaccination: No - Social History Hx Tobacco Use: Yes Hx Chewing Tobacco Use: No Hx Alcohol Use: Yes - wine 4x weekly Hx Substance Use: No Hx Substance Use Treatment: No Hx Depression: Yes Hx Physical Abuse: No Hx Emotional Abuse: No Hx Suspected Abuse: No - Female History Patient : No Family Medical History - Family History Father Living Status: Hx Family Stroke: Yes Hx Family Cancer: Yes - pancreas-dad Hx Family;Other: Down syndrome Physical Exam - Physical Exam General Appearance: Agitated, Alert, Anxious, Well Developed Eye Exam: bilateral normal Ears, Nose, Throat: hearing grossly normal, normal ENT inspection, normal pharynx Neck: non-tender, full range of motion, supple Respiratory: chest non-tender, lungs clear, normal breath sounds, no respiratory distress, no accessory muscle use Cardiovascular/Chest: normal peripheral pulses, regular rate, rhythm, no edema, no gallop, no JVD, no murmur Gastrointestinal/Abdominal: normal bowel sounds, non tender, soft Extremity: normal range of motion, non-tender, normal inspection, no pedal edema , no calf tenderness Neurologic: bootmaker II-XII nml as tested, no motor/sensory deficits, alert, other - normal gait, Comments: pressued speech, flight of ideas, paranoia with grandiosity, disorganized Progress - Progress Progress: 02/26/18 20:00 discussed patient's manic state with . reports has recently been having episodes of catatonia and has not slept in several days. Patient has grandiosity and paranoia. Patient is very disorganized. 02/26/18 20:42 CBC, CMP, UA reviewed from today, no significant abnormality. UDS BZO/ THC +; CT head negative for acute finding 02/26/18 20:43 PD at bedside, [facility] called for evaluation 02/26/18 21:27 [facility] at bedside, spoke with PD/ 02/26/18 22:15 evaluated by [facility], recommends CRU; patient agrees to go; [facility] to transport; family updated and ok with currently plan 02/26/18 22:18 ct head negative Departure - Departure Clinical Impression: Manic affective disorder with recurrent episode, Malaise and fatigue, Hematoma Fall Qualifiers: Encounter type: initial encounter Qualified Code(s): W19.XXXA - Unspecified fall, initial encounter Time of Disposition: 22:17 - discharge to CRU by [facility] Disposition: Discharge to Home or Self Care Condition: Fair Departure Forms: ED Discharge - Pt. Copy, Patient Portal Self Enrollment Instructions: DI for Laceration Repair, DI for Abrasion Diet: resume usual diet Activity: increase activity as tolerated Referrals: Riley Ramirez MD [Primary Care Provider] - 1-2 Weeks Home Medications: Ambulatory Orders Alprazolam [Xanax] 1 mg PO TID 08/23/14 Esomeprazole Magnesium [Nexium] 40 mg PO DAILY 08/23/14 Trazodone HCl 150 mg PO BEDTIME 08/23/14 fentaNYL PATCH 25 MCG/HR [Duragesic Patch 25 MCG/HR] 25 mcg TOP .Q72H 12/12/16 Lisinopril & Hydrochlorothiazi [Lisinopril/Hctz 20-25 mg] 1 tab PO DAILY Escitalopram [Lexapro] 10 mg PO DAILY 02/26/18 Methocarbamol [Robaxin] 750 mg PO Q8H PRN 02/26/18 Oxycodone HCl [Roxicodone] 15 mg PO TID 02/26/18
--- NOTE | 2018-02-26 20:31 | CT ---
PROCEDURE: Head CLINICAL HISTORY: 57 years Male trauma COMPARISON: 08/30/2015. TECHNIQUE: Contiguous axial CT images obtained through the brain without IV contrast. This exam was performed according to our department optimization program which includes automated exposure control, adjustment of the mA and/or kv according to patient size and/or use of iterative reconstruction technique. FINDINGS: The ventricles and sulci are prominent consistent with atrophic changes. No mass lesions. No acute hemorrhage. Atherosclerotic calcifications. No fluid or significant mucosal thickening in the visualized paranasal sinuses. No depressed calvarial fractures. IMPRESSION: No acute intracranial abnormality is identified. Electronically signed by: Tova Vail MD 02/26/2018 8:29 PM CDT
[2018-02-26 22:04] VITALS: BP 146/83; TEMP 97.8; O2SAT 97
== END 2018-02-26 23:02 | disposition home or self-care (01) ==
LOC: ER 18:31
DX: F31.89 Other bipolar disorder (principal); R53.81 Other malaise; I10 Essential (primary) hypertension; K21.9 Gastro-esophageal reflux disease without esophagitis; T14.8XXA Other injury of unspecified body region, initial encounter; W19.XXXA Unspecified fall, initial encounter; Y92.9 Unspecified place or not applicable

== ENCOUNTER 2018-07-20 18:08 | Emergency (ER) | payer MEDICARE ==
[2018-07-20] MEDS ORDERED: SODIUM CHLORIDE 0.9% 1000ML 1,000 ML ONE (18:24)
[2018-07-20] MEDS ORDERED: SODIUM CHLORIDE 0.9% 1000ML 1,000 ML IVS ONE (18:28)
--- NOTE | 2018-07-20 19:32 | ED.PDOC ---
History of Present Illness - General Chief Complaint: Drug or Alcohol Abuse Stated Complaint: overdose Time Seen by Provider: 07/20/18 18:28 Source: EMS Exam Limitations: clinical condition - History of Present Illness Initial Comments: Reportedly he took an overdose of Xanax 1 mg x 80 @ 1500. He states "I'm depressed." EMS states they have transported him many times over the years but this is the first time they have actually seen him act in this manner. There is no family present. Timing/Duration: 1-3 hours Severity: severe Improving Factors: nothing Worsening Factors: nothing Associated Symptoms: other - limited info from the pt; he denies having any pain or recent illnesses; says he was recently released from "[facility]". Allergies/Adverse Reactions: Allergies Tramadol Allergy (Verified 02/26/18 21:29) Zolpidem [From Ambien] Allergy (Verified 02/26/18 21:29) Acetaminophen [From Fioricet] Adverse Reaction (Verified 02/26/18 21:29) Other Butalbital [From Fioricet] Adverse Reaction (Verified 02/26/18 21:29) Other Caffeine [From Fioricet] Adverse Reaction (Verified 02/26/18 21:29) Other Home Medications: Ambulatory Orders Alprazolam [Xanax] 1 mg PO TID 08/23/14 Esomeprazole Magnesium [Nexium] 40 mg PO DAILY 08/23/14 Trazodone HCl 150 mg PO BEDTIME 08/23/14 fentaNYL PATCH 25 MCG/HR [Duragesic Patch 25 MCG/HR] 25 mcg TOP .Q72H 12/12/16 Lisinopril & Hydrochlorothiazi [Lisinopril/Hctz 20-25 mg] 1 tab PO DAILY Escitalopram [Lexapro] 10 mg PO DAILY 02/26/18 Methocarbamol [Robaxin] 750 mg PO Q8H PRN 02/26/18 Oxycodone HCl [Roxicodone] 15 mg PO TID 02/26/18 Review of Systems - Review of Systems Constitutional: States: no symptoms reported, see HPI EENTM: States: no symptoms reported, see HPI Respiratory: States: no symptoms reported, see HPI Cardiology: States: no symptoms reported, see HPI Gastrointestinal/Abdominal: States: no symptoms reported, see HPI Genitourinary: States: no symptoms reported, see HPI Musculoskeletal: States: no symptoms reported, see HPI Skin: States: no symptoms reported, see HPI Neurological: States: see HPI, depressed Endocrine: States: no symptoms reported, see HPI Hematologic/Lymphatic: States: no symptoms reported, see HPI Unable to Obtain Due To: clinical condition Past Medical History (General) - Patient Medical History Hx Seizures: Yes Hx Stroke: Yes - History of heat stroke 2010 Hx Dementia: No Hx Asthma: No Hx of COPD: No Hx Cardiac Disorders: No Hx Congestive Heart Failure: No Hx Pacemaker: No Hx Hypertension: Yes Hx Thyroid Disease: No Hx Diabetes: No Hx Gastroesophageal Reflux: Yes Hx Renal Disease: No Hx Cancer: No Hx of HIV: No Hx Hepatitis C: No Hx MRSA: No Surgical History: no surgical history - Vaccination History Hx Tetanus, Diphtheria Vaccination: No Hx Influenza Vaccination: Yes Hx Pneumococcal Vaccination: No - Social History Hx Tobacco Use: No Hx Chewing Tobacco Use: No Hx Alcohol Use: No Hx Substance Use: No Hx Substance Use Treatment: No Hx Depression: Yes Hx Physical Abuse: No Hx Emotional Abuse: No Hx Suspected Abuse: No - Female History Patient : No Family Medical History - Family History Father Living Status: Hx Family Stroke: Yes Hx Family Cancer: Yes - pancreas-dad Hx Family;Other: Down syndrome Physical Exam - Physical Exam General Appearance: No apparent distress, Lethargic Eye Exam: bilateral normal Ears, Nose, Throat: hearing grossly normal, normal ENT inspection Neck: full range of motion, supple, normal inspection Respiratory: lungs clear, normal breath sounds, no respiratory distress, no accessory muscle use Cardiovascular/Chest: normal peripheral pulses, regular rate, rhythm, no edema, no gallop, no JVD, no murmur Peripheral Pulses: radial,right: 2+, radial,left: 2+ Gastrointestinal/Abdominal: non tender, soft, no organomegaly Extremity: normal inspection, no pedal edema, normal capillary refill Neurologic: depressed affect, other - generalized weakness; unable to determine orientation level; somewhat sleepy Skin Exam: normal color, warm/dry Progress - Progress Progress: 07/20/18 19:30 The nurse reports a SBP 81 & HR 41. He is asleep. Arouses easily. Says he is hungry. HR 67 when awake. SBP 89. 2nd liter of IVF has not been given yet. 07/20/18 22:55 Lights are off & he is asleep again. I've told him he needs to show that he can remain awake before I can disposition him. 07/20/18 23:39 Asleep. 94/49; 55. 07/21/18 02:07 Has eaten again & less sedated. Medically clear for psyciatric referral. 07/21/18 02:11 UDS previously ordered was apparently discontinued. Re-ordered. - Results/Orders Results/Orders: K 3.5 Tylenol, ASA & Etoh nml. - EKG/XRAY/CT EKG: Sinus, no ST T wave changes Comments: NSR at 61; nml axis, intervals, ST & T; abnormal R wave prog. V2-V3 - Consult/PCP Time Called: 04:21 Consult/PCP: Dr. Brewer Consult Reason/Comments: accepted in transfer Departure - Departure Clinical Impression: Psychiatric disorder, Suicide attempt Overdose Qualifiers: Encounter type: initial encounter Injury intent: intentional self-harm Qualified Code(s): T50.902A - Poisoning by unspecified drugs, medicaments and biological substances, intentional self-harm, initial encounter Time of Disposition: 04:23 Disposition: Transfer to [facility] Condition: Fair Home Medications: Ambulatory Orders Alprazolam [Xanax] 1 mg PO TID 08/23/14 Esomeprazole Magnesium [Nexium] 40 mg PO DAILY 08/23/14 Trazodone HCl 150 mg PO BEDTIME 08/23/14 fentaNYL PATCH 25 MCG/HR [Duragesic Patch 25 MCG/HR] 25 mcg TOP .Q72H 12/12/16 Lisinopril & Hydrochlorothiazi [Lisinopril/Hctz 20-25 mg] 1 tab PO DAILY Escitalopram [Lexapro] 10 mg PO DAILY 02/26/18 Methocarbamol [Robaxin] 750 mg PO Q8H PRN 02/26/18 Oxycodone HCl [Roxicodone] 15 mg PO TID 02/26/18 Critical Care Note - Critical Care Note Total Time (mins): 60 Comments: toxic overdose of benzodiazepine requiring observation & IVF. Flumazenil considered but avoided due to report of a previous seizure.
[2018-07-21 05:03] VITALS: TEMP 97.4
[2018-07-21 06:29] VITALS: BP 107/72; O2SAT 96
== END 2018-07-21 06:52 ==
LOC: ER 18:08
DX: T42.4X2A Poisoning by benzodiazepines, intentional self-harm, initial encounter (principal); F32.9 Major depressive disorder, single episode, unspecified; I10 Essential (primary) hypertension; K21.9 Gastro-esophageal reflux disease without esophagitis; Z79.899 Other long term (current) drug therapy; Z88.8 Allergy status to other drugs, medicaments and biological substances; Z88.6 Allergy status to analgesic agent
CPT/HCPCS: 80053; 80307; 80320; 80329; 85025; 93005; J7030

== ENCOUNTER 2018-11-27 12:45 | Emergency (ER) | payer MEDICARE ==
[2018-11-27 13:26] VITALS: TEMP 97.4
--- NOTE | 2018-11-27 13:30 | ED.PDOC ---
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 HE IS ALERT COHERENT BUT HIS SPEECH IS RAMBLING ( MANIC ) - History of Present Illness Severity: moderate Improving Factors: nothing Worsening Factors: nothing Associated Symptoms: denies symptoms Allergies/Adverse Reactions: Allergies Tramadol Allergy (Verified 11/27/18 13:26) Zolpidem [From Ambien] Allergy (Verified 11/27/18 13:26) Acetaminophen [From Fioricet] Adverse Reaction (Verified 11/27/18 13:26) Other Butalbital [From Fioricet] Adverse Reaction (Verified 11/27/18 13:26) Other Caffeine [From Fioricet] Adverse Reaction (Verified 11/27/18 13:26) Other Home Medications: Ambulatory Orders Alprazolam [Xanax] 1 mg PO BID 08/23/14 Trazodone HCl 100 mg PO BEDTIME 08/23/14 Lisinopril & Hydrochlorothiazi [Lisinopril/Hctz 20-25 mg] 1 tab PO DAILY 07/12/17 Temazepam BEDTIME 11/27/18 Vortioxetine HBr [Brintellix] 10 mg PO DAILY 11/27/18 Review of Systems - Review of Systems Constitutional: States: see HPI EENTM: States: no symptoms reported Respiratory: States: no symptoms reported Cardiology: States: no symptoms reported Gastrointestinal/Abdominal: States: no symptoms reported Genitourinary: States: no symptoms reported Musculoskeletal: States: no symptoms reported Skin: States: no symptoms reported Neurological: States: no symptoms reported Endocrine: States: no symptoms reported Hematologic/Lymphatic: States: no symptoms reported Past Medical History (General) - Patient Medical History Hx Seizures: Yes Hx Stroke: Yes - History of heat stroke 2010 Hx Dementia: No Hx Asthma: No Hx of COPD: No Hx Cardiac Disorders: No Hx Congestive Heart Failure: No Hx Pacemaker: No Hx Hypertension: Yes Hx Thyroid Disease: No Hx Diabetes: No Hx Gastroesophageal Reflux: Yes Hx Renal Disease: No Hx Cancer: No Hx of HIV: No Hx Hepatitis C: No Hx MRSA: No - Vaccination History Hx Tetanus, Diphtheria Vaccination: No Hx Influenza Vaccination: No Hx Pneumococcal Vaccination: No - Social History Hx Tobacco Use: No Hx Chewing Tobacco Use: No Hx Alcohol Use: No Hx Substance Use: No Hx Substance Use Treatment: No Hx Depression: Yes Hx Physical Abuse: No Hx Emotional Abuse: No Hx Suspected Abuse: No - Female History Patient : No Family Medical History - Family History Father Living Status: Hx Family Stroke: Yes Hx Family Cancer: Yes - pancreas-dad Hx Family;Other: Down syndrome Physical Exam - Physical Exam General Appearance: Alert, Anxious, Emaciated Eye Exam: bilateral normal Ears, Nose, Throat: hearing grossly normal, normal ENT inspection, normal pharynx Neck: non-tender, full range of motion, supple Respiratory: chest non-tender, lungs clear, normal breath sounds, no respiratory distress Cardiovascular/Chest: normal peripheral pulses, regular rate, rhythm, no edema, no gallop, no JVD Gastrointestinal/Abdominal: normal bowel sounds, non tender, soft Back Exam: normal inspection, no CVA tenderness, no vertebral tenderness Extremity: normal range of motion, non-tender, normal inspection, no pedal edema Progress - Results/Orders Results/Orders: Laboratory Tests 11/27/18 11/27/18 11/27/18 13:32 13:32 14:47 WBC 7.6 RBC 4.44 L Hgb 14.4 Hct 42.5 MCV 95.9 H MCH 32.4 H MCHC 33.8 RDW 12.6 Plt Count 315 MPV 8.0 Absolute Neuts (auto) 5.70 Absolute Lymphs (auto) 1.10 Absolute Monos (auto) 0.70 Absolute Eos (auto) 0.00 Absolute Basos (auto) 0.00 Neutrophils % 74.9 Lymphocytes % 15.0 L Monocytes % 9.2 H Eosinophils % 0.5 L Basophils % 0.4 Sodium 137 Potassium 4.0 Chloride 103 Carbon Dioxide 26 Anion Gap 12.0 BUN 18 Creatinine 0.84 BUN/Creatinine Ratio 21.4 H Random Glucose 93 Serum Osmolality 275.4 Calcium 9.5 Total Bilirubin 1.4 H AST 19 ALT 16 Alkaline Phosphatase 36 L Serum Total Protein 7.1 Albumin 4.3 Globulin 2.8 Albumin/Globulin Ratio 1.5 Urine Color Yellow Urine Appearance Sl cloudy Urine pH 7.5 Ur Specific [place] 1.015 Urine Protein Negative Urine Glucose (UA) Negative Urine Ketones 15 H Urine Blood Negative Urine Nitrite Negative Urine Bilirubin Negative Urine Urobilinogen 2.0 H Ur Leukocyte Esterase Negative Urine RBC 0 Urine WBC 0 Ur Epithelial Cells 0 Urine Bacteria 0 Urine Mucus Moderate HE RECEIVED A LITRE OF NORMAL SALINE HE WAS AMBULATING WELL WITHOUT ANY SYMPTOMS OF HYPOTENSION HIS WEIGHT OF 40 LBS HAS CONTRIBUTED TO NORMALISATION OF HIS BLOOD PRESSURE HIS WAS ADVISED TO HOLD OF ON THE LISINOPRIL THAT HE HAS BEEN TAKING AND TO MONITOR THE BLOOD PRESSURE AND REPORT THE FLUCTUATIONS TO HIS PCP MD Departure - Departure Clinical Impression: Psychiatric symptoms, Seizure disorder, Manic affective disorder with recurrent episode, Hypotension due to drugs Time of Disposition: 15:27 Disposition: Discharge to Home or Self Care Condition: Good Referrals: Brendan Cain MD [Primary Care Provider] - 1-2 Weeks Home Medications: Ambulatory Orders Alprazolam [Xanax] 1 mg PO BID 08/23/14 Trazodone HCl 100 mg PO BEDTIME 08/23/14 Lisinopril & Hydrochlorothiazi [Lisinopril/Hctz 20-25 mg] 1 tab PO DAILY 07/12/17 Temazepam BEDTIME 11/27/18 Vortioxetine HBr [Brintellix] 10 mg PO DAILY 11/27/18
[2018-11-27] MEDS ORDERED: SODIUM CHLORIDE 0.9% 1000ML 1,000 ML IVS ONE (13:32)
[2018-11-27 15:42] VITALS: BP 97/76; O2SAT 97
== END 2018-11-27 15:43 | disposition home or self-care (01) ==
LOC: ER 12:45
DX: F31.9 Bipolar disorder, unspecified (principal); I95.2 Hypotension due to drugs; G40.909 Epilepsy, unspecified, not intractable, without status epilepticus; I10 Essential (primary) hypertension; K21.9 Gastro-esophageal reflux disease without esophagitis; Z79.899 Other long term (current) drug therapy; Z88.6 Allergy status to analgesic agent; Z88.8 Allergy status to other drugs, medicaments and biological substances
CPT/HCPCS: 80053; 80307; 81001; 85025; J7030

== ENCOUNTER 2019-01-09 06:53 | Emergency (ER) | payer MEDICARE ==
[2019-01-09] MEDS ORDERED: NEOMYCIN-BACITRACIN-POLYMYXIN 0.9 GM UD TOP ONE (07:02)
[2019-01-09] MEDS ORDERED: CHLORHEXIDINE GLUCONATE 4 % 15 ML UD TOP ONE (07:02)
--- NOTE | 2019-01-09 07:06 | ED.PDOC ---
History of Present Illness - General Time Seen by Provider: 01/09/19 07:03 Source: patient Exam Limitations: no limitations - History of Present Illness Initial Comments: pt slipped and fell this am 2 hrs ago. no definite loc but did feel a little dizzy for 10 minutues afterward. has 1 inch very superficial laceration over the left maxillary prominence. no gape and will not require any repair. no crepitus over maxillary sinus. no blood from nares. no pain with extraocular movement and no limitation of extraocular movements or vision changes from baseline. he is alert and oriented x4. no other obvious injury. no abn jaw occlusion and no hearing changes. tms are clear and no obvious csf from nares or ears. he does have a black eye starting to develop on the left. no palpable orbital instability. no neck pain. Timing/Duration: 1-3 hours Severity: moderate Improving Factors: nothing Worsening Factors: nothing Associated Symptoms: denies symptoms Allergies/Adverse Reactions: Allergies Tramadol Allergy (Verified 11/27/18 13:26) Zolpidem [From Ambien] Allergy (Verified 11/27/18 13:26) Acetaminophen [From Fioricet] Adverse Reaction (Verified 11/27/18 13:26) Other Butalbital [From Fioricet] Adverse Reaction (Verified 11/27/18 13:26) Other Caffeine [From Fioricet] Adverse Reaction (Verified 11/27/18 13:26) Other Home Medications: Ambulatory Orders Alprazolam [Xanax] 1 mg PO BID 08/23/14 Trazodone HCl 100 mg PO BEDTIME 08/23/14 Lisinopril & Hydrochlorothiazi [Lisinopril/Hctz 20-25 mg] 1 tab PO DAILY 07/12/17 Temazepam BEDTIME 11/27/18 Vortioxetine HBr [Brintellix] 10 mg PO DAILY 11/27/18 Review of Systems - Review of Systems Constitutional: States: malaise EENTM: States: no symptoms reported Respiratory: States: no symptoms reported Cardiology: States: no symptoms reported Gastrointestinal/Abdominal: States: no symptoms reported Genitourinary: States: no symptoms reported Musculoskeletal: States: no symptoms reported Skin: States: see HPI Neurological: States: see HPI Endocrine: States: no symptoms reported All other Systems: No Change from Baseline Past Medical History (General) - Patient Medical History Hx Seizures: Yes Hx Stroke: Yes - History of heat stroke 2010 Hx Dementia: No Hx Asthma: No Hx of COPD: No Hx Cardiac Disorders: No Hx Congestive Heart Failure: No Hx Pacemaker: No Hx Hypertension: Yes Hx Thyroid Disease: No Hx Diabetes: No Hx Gastroesophageal Reflux: Yes Hx Renal Disease: No Hx Cancer: No Hx of HIV: No Hx Hepatitis C: No Hx MRSA: No - Vaccination History Hx Tetanus, Diphtheria Vaccination: No Hx Influenza Vaccination: No Hx Pneumococcal Vaccination: No - Social History Hx Tobacco Use: No Hx Chewing Tobacco Use: No Hx Alcohol Use: No Hx Substance Use: No Hx Substance Use Treatment: No Hx Depression: Yes Hx Physical Abuse: No Hx Emotional Abuse: No Hx Suspected Abuse: No - Female History Patient : No Family Medical History - Family History Father Living Status: Hx Family Stroke: Yes Hx Family Cancer: Yes - pancreas-dad Hx Family;Other: Down syndrome Physical Exam - Physical Exam General Appearance: Alert, Comfortable, No apparent distress Eye Exam: bilateral normal Ears, Nose, Throat: hearing grossly normal, normal ENT inspection, other - see hpi Neck: full range of motion, supple Respiratory: no respiratory distress, no accessory muscle use Cardiovascular/Chest: normal peripheral pulses, no edema, other - regular rate Peripheral Pulses: radial,right: 2+, radial,left: 2+ Gastrointestinal/Abdominal: non tender, soft Rectal Exam: deferred Extremity: non-tender, no pedal edema, normal capillary refill 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 he has a minor laceration that just requires cleaning and JHONNY. he likely has a mild concussion and has been given concussion warnings. he has a black eye that will likely worsen somewhat before it improves. er warnings given. follow up with pcp as per routine. Departure - Departure Clinical Impression: Accidental laceration, Periorbital hematoma of left eye Concussion Qualifiers: Encounter type: initial encounter Loss of consciousness presence/duration: without LOC Qualified Code(s): S06.0X0A - Concussion without loss of consciousness, initial encounter Disposition: Discharge to Home or Self Care Condition: Fair Instructions: DI for Abrasion, Black Eye, Concussion, Adult (DC) Diet: regular diet Activity: increase activity as tolerated Referrals: Brendan Cain MD [Primary Care Provider] - 1-2 Weeks Home Medications: Ambulatory Orders Alprazolam [Xanax] 1 mg PO BID 08/23/14 Trazodone HCl 100 mg PO BEDTIME 08/23/14 Lisinopril & Hydrochlorothiazi [Lisinopril/Hctz 20-25 mg] 1 tab PO DAILY 07/12/17 Temazepam BEDTIME 11/27/18 Vortioxetine HBr [Brintellix] 10 mg PO DAILY 11/27/18 Additional Instructions: pt here with injuries from an accidental fall. he has a minor laceration that just requires cleaning and JHONNY. he likely has a mild concussion and has been given concussion warnings. he has a black eye that will likely worsen somewhat before it improves. er warnings given. follow up with pcp as per routine.
[2019-01-09 07:09] VITALS: TEMP 98.2
[2019-01-09 07:28] VITALS: BP 125/72; O2SAT 98
== END 2019-01-09 07:23 | disposition home or self-care (01) ==
LOC: ER 06:53
DX: S06.0X0A Concussion without loss of consciousness, initial encounter (principal); S01.81XA Laceration without foreign body of other part of head, initial encounter; S00.12XA Contusion of left eyelid and periocular area, initial encounter; F32.9 Major depressive disorder, single episode, unspecified; K21.9 Gastro-esophageal reflux disease without esophagitis; I10 Essential (primary) hypertension; Z79.899 Other long term (current) drug therapy; Z88.8 Allergy status to other drugs, medicaments and biological substances; W01.0XXA Fall on same level from slipping, tripping and stumbling without subsequent striking against object, initial encounter; Y92.9 Unspecified place or not applicable

== ENCOUNTER 2020-01-19 02:53 | Emergency (ER) | payer MEDICARE ==
[2020-01-19 03:14] VITALS: TEMP 99.1
[2020-01-19] MEDS ORDERED: SODIUM CHLORIDE 0.9% (FLUSH) 10 ML SYG IV PRN (03:15)
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
[2020-01-19 04:58] VITALS: BP 117/65; O2SAT 98
== END 2020-01-19 05:02 | disposition home or self-care (01) ==
LOC: ER 02:53
DX: R45.6 Violent behavior (principal); F32.9 Major depressive disorder, single episode, unspecified; R56.9 Unspecified convulsions; I10 Essential (primary) hypertension; K21.9 Gastro-esophageal reflux disease without esophagitis; Z79.899 Other long term (current) drug therapy; Z88.5 Allergy status to narcotic agent; Z88.8 Allergy status to other drugs, medicaments and biological substances; Z88.6 Allergy status to analgesic agent

== ENCOUNTER 2020-08-21 11:47 | Emergency (ER) | payer MEDICARE ==
[2020-08-21] MEDS ORDERED: SODIUM CHLORIDE 0.9% (FLUSH) 10 ML SYG IV PRN (11:51)
--- NOTE | 2020-08-21 11:56 | ED.PDOC ---
History of Present Illness - General Time Seen by Provider: 08/21/20 11:51 Source: patient, EMS - History of Present Illness Initial Comments: 60-year-old male with past medical history of bipolar disorder who is brought in by EMS from home for chief complaint of Xanax overdose. Patient reports that he took a handful of Xanax 1 mg pills at 2 AM this morning. He is uncertain as to exactly how many he took, states possibly more than 20 to 30 tablets. EMS reported an empty Xanax prescription bottle was found on scene listed as 120 quantity of 1 mg tablets which was filled on 08/02/2020. Patient states that he took the pills to try to get some sleep. Denies any intent of self-harm or suicide. Reports that he slept for several hours and when he woke up he told his that he had taken a tablets, so she became concerned and called 911. Patient denies any complaints. Denies chest pain, dyspnea, headache, confusion, body aches, abdominal pain, nausea/vomiting, etc. Denies any alcohol or illicit substance abuse today. PCP is Dr. Cain. Dr. Carrillo in [place] prescribed the Xanax. Patient reports he was admitted x1 in the past to a psychiatric facility, which was [facility] many years ago for bipolar disorder. Denies any prior history of suicidal ideation or attempts. Allergies/Adverse Reactions: Allergies Tramadol Allergy (Verified 08/21/20 11:58) Zolpidem [From Ambien] Allergy (Verified 08/21/20 11:58) Acetaminophen [From Fioricet] Adverse Reaction (Verified 08/21/20 11:58) Other Butalbital [From Fioricet] Adverse Reaction (Verified 08/21/20 11:58) Other Caffeine [From Fioricet] Adverse Reaction (Verified 08/21/20 11:58) Other Home Medications: Ambulatory Orders Alprazolam [Xanax] 1 mg PO BID 08/23/14 Lamotrigine 100 mg PO DAILY 08/21/20 Temazepam 30 mg PO BEDTIME 08/21/20 Review of Systems - Review of Systems Review of Systems: 08/21/20 11:56 as per HPI All other Systems: Reviewed and Negative Past Medical History (General) - Patient Medical History Hx Seizures: Yes Hx Stroke: Yes - History of heat stroke 2010 Hx Dementia: No Hx Asthma: No Hx of COPD: No Hx Cardiac Disorders: No Hx Congestive Heart Failure: No Hx Pacemaker: No Hx Hypertension: Yes Hx Thyroid Disease: No Hx Diabetes: No Hx Gastroesophageal Reflux: Yes Hx Renal Disease: No Hx Cancer: No Hx of HIV: No Hx Hepatitis C: No Hx MRSA: No - Vaccination History Hx Tetanus, Diphtheria Vaccination: No Hx Influenza Vaccination: No Hx Pneumococcal Vaccination: No - Social History Hx Tobacco Use: No Hx Chewing Tobacco Use: No Hx Alcohol Use: No Hx Substance Use: No Hx Substance Use Treatment: No Hx Depression: Yes Hx Physical Abuse: No Hx Emotional Abuse: No Hx Suspected Abuse: No - Female History Patient : No Family Medical History - Family History Father Living Status: Hx Family Stroke: Yes Hx Family Cancer: Yes - pancreas-dad Hx Family;Other: Down syndrome Physical Exam - Physical Exam General Appearance: Alert, Comfortable, No apparent distress, Unkempt - slightly drowsy and slightly slowed mentation but otherwise GCS 15, AAOx3, answering questions appropriately Eye Exam: bilateral normal Ears, Nose, Throat: hearing grossly normal, normal ENT inspection, normal pharynx Neck: non-tender, full range of motion, supple, normal inspection Respiratory: lungs clear, normal breath sounds, no respiratory distress, no accessory muscle use Cardiovascular/Chest: normal peripheral pulses, regular rate, rhythm, no edema, no gallop, no JVD, no murmur Peripheral Pulses: radial,right: 2+, radial,left: 2+ Gastrointestinal/Abdominal: non tender, soft, no organomegaly Back Exam: normal inspection, no CVA tenderness, no vertebral tenderness Extremity: normal range of motion, non-tender, normal inspection, no pedal edema, no calf tenderness, normal capillary refill 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 Consult with poison control. 08/21/20 14:34 -Patient remains stable, resting comfortably in ED bed. Vitals within normal limits. Labs pertinent for urine drug screen positive for benzodiazepines, n egative for all others. Tox work-up is otherwise unremarkable. Patient has had no arrhythmias with cardiac monitoring. - is now present at bedside. She states that she controls the patient's p ill bottles at home and hides them from him. He made a statement a couple days ago that he was going to "ransack the house" and find the pills and take them to help him sleep. is equally concerned about his bipolar/depression recently. She states that he seems depressed recently with poor energy around the home. She denies that he has made any suicidal statements but is worried about his erratic behavior and taking so many pills at once. She is concerned about his safety. We will repeat the patient's EKG and plan for MR consultation in the ED. 08/21/20 18:43 -Patient has remained stable in the ED. [facility] has consulted with the patient has also spoken with his . They state that patient may be admitted to a psychiatric facility on a voluntary basis but currently find no reason to admit him involuntarily. I have spoken with the patient who is willing to go voluntarily. now back and states she is going to bring him to [facility] tomorrow for inpatient admission. and pt feel safe with this plan. Dc home in care of with this plan. Solitario Morin MD Billing #[id number] 08/21/20 11:51 Sodium Chloride 0.9% (Flush) [Saline Flush Syringe] 10 ml IV PRN PRN 08/21/20 12:00 EKG STAT 08/21/20 14:15 EKG STAT Laboratory Results - last 24 hr 08/21/20 08/21/20 08/21/20 11:51 11:51 11:51 WBC 10.4 RBC 4.67 L Hgb 14.9 Hct 43.8 MCV 93.8 MCH 31.8 H MCHC 34.0 RDW 13.8 Plt Count 257 MPV 7.7 Absolute Neuts (auto) 7.50 H Absolute Lymphs (auto) 1.70 Absolute Monos (auto) 0.80 Absolute Eos (auto) 0.20 Absolute Basos (auto) 0.20 H Neutrophils % 72.0 Lymphocytes % 16.8 L Monocytes % 7.4 Eosinophils % 2.2 Basophils % 1.6 PT 10.4 INR 1.05 PTT (SP) 26.0 Sodium 140 Potassium 4.0 Chloride 109 Carbon Dioxide 22 Anion Gap 13.0 BUN 17 Creatinine 1.24 BUN/Creatinine Ratio 13.7 Random Glucose 84 Serum Osmolality 280.1 Calcium 8.2 L Total Bilirubin 0.8 AST 19 ALT 17 Alkaline Phosphatase 37 L Creatine Kinase Troponin I Serum Total Protein 6.5 Albumin 4.0 Globulin 2.5 Albumin/Globulin Ratio 1.6 Urine Color Urine Appearance Urine pH Ur Specific Boley Urine Protein Urine Glucose (UA) Urine Ketones Urine Blood Urine Nitrite Urine Bilirubin Urine Urobilinogen Ur Leukocyte Esterase Urine RBC Urine WBC Ur Epithelial Cells Urine Bacteria Salicylates < 4.0 Urine Opiates Screen Acetaminophen < 10.0 L Urine Barbiturates Ur Phencyclidine Scrn U Amphetamin/Meth Scrn U Benzodiazepines Scrn U Cocaine Metab Screen U Cannabinoids Screen Ethyl Alcohol 08/21/20 08/21/20 08/21/20 11:51 11:51 11:52 WBC RBC Hgb Hct MCV MCH MCHC RDW Plt Count MPV Absolute Neuts (auto) Absolute Lymphs (auto) Absolute Monos (auto) Absolute Eos (auto) Absolute Basos (auto) Neutrophils % Lymphocytes % Monocytes % Eosinophils % Basophils % PT INR PTT (SP) Sodium Potassium Chloride Carbon Dioxide Anion Gap BUN Creatinine BUN/Creatinine Ratio Random Glucose Serum Osmolality Calcium Total Bilirubin AST ALT Alkaline Phosphatase Creatine Kinase Troponin I < 0.02 Serum Total Protein Albumin Globulin Albumin/Globulin Ratio Urine Color Urine Appearance Urine pH Ur Specific Boley Urine Protein Urine Glucose (UA) Urine Ketones Urine Blood Urine Nitrite Urine Bilirubin Urine Urobilinogen Ur Leukocyte Esterase Urine RBC Urine WBC Ur Epithelial Cells Urine Bacteria Salicylates Urine Opiates Screen Negative Acetaminophen Urine Barbiturates Negative Ur Phencyclidine Scrn Negative U Amphetamin/Meth Scrn Negative U Benzodiazepines Scrn Positive H U Cocaine Metab Screen Negative U Cannabinoids Screen Negative Ethyl Alcohol < 5.40 08/21/20 08/21/20 11:52 13:41 WBC RBC Hgb Hct MCV MCH MCHC RDW Plt Count MPV Absolute Neuts (auto) Absolute Lymphs (auto) Absolute Monos (auto) Absolute Eos (auto) Absolute Basos (auto) Neutrophils % Lymphocytes % Monocytes % Eosinophils % Basophils % PT INR PTT (SP) Sodium Potassium Chloride Carbon Dioxide Anion Gap BUN Creatinine BUN/Creatinine Ratio Random Glucose Serum Osmolality Calcium Total Bilirubin AST ALT Alkaline Phosphatase Creatine Kinase 119 Troponin I Serum Total Protein Albumin Globulin Albumin/Globulin Ratio Urine Color Yellow Urine Appearance Clear Urine pH 6.0 Ur Specific Boley 1.015 Urine Protein Negative Urine Glucose (UA) Negative Urine Ketones Negative Urine Blood Small H Urine Nitrite Negative Urine Bilirubin Negative Urine Urobilinogen 0.2 Ur Leukocyte Esterase Negative Urine RBC 5-10 H Urine WBC 0 Ur Epithelial Cells 0 Urine Bacteria 0 Salicylates Urine Opiates Screen Acetaminophen Urine Barbiturates Ur Phencyclidine Scrn U Amphetamin/Meth Scrn U Benzodiazepines Scrn U Cocaine Metab Screen U Cannabinoids Screen Ethyl Alcohol - EKG/XRAY/CT EKG: Sinus - Normal sinus rhythm, heart rate 60, no ST elevations or Q waves noted, axis normal, intervals normal, compared to 07/20/2018 EKG appears largely unchanged. XRAY: chest - Underpenetrated film with poor inspiratory effort, otherwise no acute processes per my read - Additional EKG/XRAY/Consults EKG #2: Unchanged from - initial Departure - Departure Clinical Impression: Drug overdose, intentional Qualifiers: Encounter type: initial encounter Qualified Code(s): T50.902A - Poisoning by unspecified drugs, medicaments and biological substances, intentional self-harm, initial encounter Time of Disposition: 18:46 Disposition: Discharge to Home or Self Care Condition: Good Departure Forms: ED Discharge - Pt. Copy, Patient Portal Self Enrollment Instructions: Accidental Overdose (DC) Diet: resume usual diet Activity: increase activity as tolerated Referrals: Brendan Cain MD [Primary Care Provider] - 1-2 Weeks Home Medications: Ambulatory Orders Alprazolam [Xanax] 1 mg PO BID 08/23/14 Lamotrigine 100 mg PO DAILY 08/21/20 Temazepam 30 mg PO BEDTIME 08/21/20 Additional Instructions: Remain safe at home and have your continue to manage her medications and keep them in a safe location away from you in order to prevent repeat overdose of medications. Return to the ED if you are having any thoughts or plans of suicide or self-harm. Follow-up closely with your primary care physician in the next 3 to 7 days as recommended or sooner as needed.
--- NOTE | 2020-08-21 12:25 | RAD ---
EXAM: X-RAY, Chest (1 View) HISTORY: Xanax overdose. COMPARISON: Chest x-ray from 12/12/2016. TECHNIQUE: AP view of the chest. FINDINGS: Lungs: Shallow inspiration with clear lungs. Pleural space: No pneumothorax or pleural effusion is present. Heart: Mildly enlarged heart. Bones: No acute bone abnormality. IMPRESSION: Shallow inspiration with clear lungs. Electronically signed by: Jovanni Arreola MD 08/21/2020 12:23 PM CDT
[2020-08-21 14:06] VITALS: O2SAT 98
[2020-08-21 18:57] VITALS: BP 137/80; TEMP 97.6
== END 2020-08-21 18:52 | disposition home or self-care (01) ==
LOC: ER 11:47
DX: T42.4X1A Poisoning by benzodiazepines, accidental (unintentional), initial encounter (principal); F13.10 Sedative, hypnotic or anxiolytic abuse, uncomplicated; F31.9 Bipolar disorder, unspecified; K21.9 Gastro-esophageal reflux disease without esophagitis; I10 Essential (primary) hypertension; R56.9 Unspecified convulsions; Z79.899 Other long term (current) drug therapy; Z88.5 Allergy status to narcotic agent; Z88.8 Allergy status to other drugs, medicaments and biological substances; Z88.6 Allergy status to analgesic agent